=== PATIENT | male | born 1935 | race Caucasian/White ===

== ENCOUNTER → 2016-08-12 | Outpatient (CLI) | payer MEDICARE, OTHER ==
[2016-08-12 10:32] LABS: Basophils # (A) 0.1 k/uL (0-0.2); Basophils % (A) 1 %; CH 33.2; CHCM 33.4; Eosinophils # (A) 0.2 k/uL (0-0.7); Eosinophils % (A) 4 %; HCT 51.4 % (39.0-53.0); HDW 2.31; HGB 16.8 gm/dL (13.0-17.5); Luc # (Auto) 0.16; Luc % (Auto) 3; Lymphocytes % (A) 16 %; MCH 32.6 pg (25.0-35.0); MCHC 32.6 g/dL (31.0-37.0); MCV 99.9 fL (80.0-100.0); Mean Platelet Volume 7.2; Monocytes # (A) 0.3 k/uL (0-1.0); Monocytes % (A) 5 %; Neutrophils # (A) 4.3 k/uL (1.3-7.7); Neutrophils % (A) 71 %; RBC 5.15 m/uL (4.30-5.90); RDW 13.4 % (11.5-15.5); WBC (Perox) 6.04
[2016-08-12 12:03] LABS: Hemoglobin A1C 6.3 % (4.2-6.1)
[2016-08-12 12:10] LABS: ALT 41 U/L (21-72); AST 26 U/L (17-59); Alkaline Phosphatase 65 U/L (38-126); Anion Gap 13 mmol/L; Blood Urea Nitrogen 16 mg/dL (9-20); Calcium 9.3 mg/dL (8.4-10.2); Carbon Dioxide 26 mmol/L (22-30); Chloride 105 mmol/L (98-107); Cholesterol 172 mg/dL (<200); Glucose 119 mg/dL (74-99); HDL Cholesterol 48 mg/dL (40-60); Non-African American GFR(MDRD) >60 (>60 ml/min/1.73 sqM); Potassium 4.3 mmol/L (3.5-5.1); Sodium 144 mmol/L (137-145); Total Bilirubin 0.7 mg/dL (0.2-1.3); Total Protein 6.5 g/dL (6.3-8.2); Triglycerides 100 mg/dL (<150)
== END | disposition home or self-care (01) ==
LOC: LABWHC1 08:51
PROVIDERS: ATTEND Internal Medicine Critical Care Medicine
DX: E55.9 Vitamin D deficiency, unspecified (principal); E78.5 Hyperlipidemia, unspecified; Z12.5 Encounter for screening for malignant neoplasm of prostate; Z79.899 Other long term (current) drug therapy
CPT/HCPCS: 84439; 80061; 80053; 83036; 84443; 85025; 82306; 36415; G0103

== ENCOUNTER → 2018-03-08 | Outpatient (CLI) | payer MEDICARE, OTHER ==
[2018-03-08 11:12] LABS: Basophils # (A) 0.1 k/uL (0-0.2); Basophils % (A) 1 %; Eosinophils # (A) 0.2 k/uL (0-0.7); Eosinophils % (A) 4 %; HCT 52.2 % (39.0-53.0); HGB 16.6 gm/dL (13.0-17.5); Lymphocytes % (A) 16 %; MCH 31.3 pg (25.0-35.0); MCHC 31.8 g/dL (31.0-37.0); MCV 98.5 fL (80.0-100.0); Mean Platelet Volume 6.9; Monocytes # (A) 0.3 k/uL (0-1.0); Monocytes % (A) 4 %; Neutrophils # (A) 4.6 k/uL (1.3-7.7); Neutrophils % (A) 73 %; Platelet Count 203 k/uL (150-450); RDW 13.4 % (11.5-15.5); WBC 6.3 k/uL (3.8-10.6)
[2018-03-08 16:16] LABS: Albumin 4.2 g/dL (3.80-4.90); Albumin/Globulin Ratio 2.47 (1.20-2.10); Anion Gap 6.9 mmol/L (4.00-12.00); Calcium 9.2 mg/dL (8.7-10.3); Carbon Dioxide 29.1 mmol/L (21.6-31.8); Globulin 1.7 g/dL (2.1-3.7); Potassium 4.3 mmol/L (3.5-5.5); Total Bilirubin 0.9 mg/dL (0.2-1.2); Total Protein 5.9 g/dL (6.2-8.2)
== END | disposition home or self-care (01) ==
LOC: LABWHC1 10:09
PROVIDERS: ATTEND Internal Medicine Critical Care Medicine
DX: K57.92 Diverticulitis of intestine, part unspecified, without perforation or abscess without bleeding (principal); R97.20 Elevated prostate specific antigen [PSA]; M19.90 Unspecified osteoarthritis, unspecified site; E78.5 Hyperlipidemia, unspecified; I10 Essential (primary) hypertension; E55.9 Vitamin D deficiency, unspecified; Z12.5 Encounter for screening for malignant neoplasm of prostate
CPT/HCPCS: 84439; 80061; 80053; 84443; 85025; 82306; 83036; 36415; G0103

== ENCOUNTER 2018-10-14 21:09 | Emergency (ER) | payer MEDICARE, OTHER ==
[2018-10-14 21:18] VITALS: TEMP 97.5
--- NOTE | 2018-10-14 22:36 | ED ---
Male Urogenital HPI - General Chief complaint: Urogenital Stated complaint: Abd Pain Time Seen by Provider: 10/14/18 21:26 Source: patient, RN notes reviewed, old records reviewed Mode of arrival: wheelchair Limitations: no limitations - History of Present Illness Initial comments: This is an 83 male to the ED complains of severe abdominal pain and inability to urinate. Patient has recent history of knee surgery. Patient has been unable to urinate, has had bleeding and blood clots. Patient has severe abdominal pain with history or urinary retention. MD Complaint: dysuria (urinary retention and severe abdominal pain) -: hour(s) Location: abdomen Severity: severe Severity scale (1-10): 10 Quality: sharp Consistency: constant Improves with: none Worsens with: none Reports: urinary retention - Related Data Home Medications Medication Instructions Recorded Confirmed Atenolol [Tenormin] 5 mg PO DAILY 07/20/13 07/20/13 Atorvastatin Calcium [Lipitor] 5 mg PO DAILY 07/20/13 07/20/13 Cholecalciferol [Vitamin D3 (25 1,000 units PO DAILY 07/20/13 07/20/13 Mcg = 1000 Iu)] Moexipril/Hydrochlorothiazide 25 mg PO DAILY 07/20/13 07/20/13 [Uniretic 15-12.5 Tablet] Multivitamin/Iron/Folic Acid 1 tab PO DAILY 07/20/13 07/20/13 [Centrum Complete Multivit Tab] Previous Rx's Medication Instructions Recorded HYDROcodone/APAP 5-325MG [Almira 5] 1 each PO Q6HR PRN #20 tab 07/23/13 Levofloxacin [Levaquin] 500 mg PO DAILY #7 tab 07/23/13 metroNIDAZOLE [Flagyl] 500 mg PO TID #21 tab 07/23/13 Allergies Allergy/AdvReac Type Severity Reaction Status Date / Time Penicillins Allergy Intermediate Rash/Hives Verified 07/20/13 16:12 Review of Systems ROS Statement: Those systems with pertinent positive or pertinent negative responses have been documented in the HPI. ROS Other: All systems not noted in ROS Statement are negative. Past Medical History Past Medical History: GERD/Reflux, GI Bleed, Hyperlipidemia, Hypertension, Osteoarthritis (OA), Prostate Disorder Additional Past Medical History / Comment(s): gi bleed, diverticulosis History of Any Multi-Drug Resistant Organisms: None Reported Past Surgical History: Adenoidectomy, Back Surgery, Prostate Surgery, Tonsillectomy Additional Past Surgical History / Comment(s): r knee replacement, turps, BACK SX-CLIPS IN PLACE,FRANCIS KNEE REPLACEMENTS, TURP Past Psychological History: No Psychological Hx Reported Smoking Status: Former smoker Past Alcohol Use History: Daily Past Drug Use History: None Reported General Exam - General Exam Comments Initial Comments: severe abdominal pain Limitations: no limitations General appearance: alert, in no apparent distress Head exam: Present: atraumatic, normocephalic, normal inspection Eye exam: Present: normal appearance, PERRL, EOMI. Absent: scleral icterus, conjunctival injection, periorbital swelling ENT exam: Present: normal exam, mucous membranes moist Neck exam: Present: normal inspection. Absent: tenderness, meningismus, lymphadenopathy Respiratory exam: Present: normal lung sounds bilaterally. Absent: respiratory distress, wheezes, rales, rhonchi, stridor Cardiovascular Exam: Present: regular rate, normal rhythm, normal heart sounds. Absent: systolic murmur, diastolic murmur, rubs, gallop, clicks GI/Abdominal exam: Present: soft, normal bowel sounds. Absent: distended, tenderness, guarding, rebound, rigid Extremities exam: Present: normal inspection, full ROM, normal capillary refill. Absent: tenderness, pedal edema, joint swelling, calf tenderness Back exam: Present: normal inspection Neurological exam: Present: alert, oriented X3, CN II-XII intact Psychiatric exam: Present: normal affect, normal mood Skin exam: Present: warm, dry, intact, normal color. Absent: rash Course Vital Signs 10/14/18 21:14 Temperature 97.5 F L Pulse Rate 81 Respiratory 20 Rate Blood Pressure 156/67 O2 Sat by Pulse 95 Oximetry - Reevaluation(s) Reevaluation #1: 10/14/18 22:32 medical record is reviewed Reevaluation #2: 10/14/18 22:32 patient has complete relief after folet placement Reevaluation #3: 10/14/18 22:35 had 1100 cc bloody urine in thomas Disposition Clinical Impression: Urinary retention Disposition: HOME SELF-CARE Condition: Good Instructions (If sedation given, give patient instructions): Urinary Retention in Men (ED), Thomas Catheter Placement and Care (ED) Is patient prescribed a controlled substance at d/c from ED?: No Referrals: Clifton Veronica DO [Primary Care Provider] - 1-2 days
[2018-10-14 22:47] VITALS: BP 168/88; PULSE 73; RESP 16
== END 2018-10-14 22:48 | disposition home or self-care (01) ==
LOC: EC 21:09
DX: R33.9 Retention of urine, unspecified (principal); R10.9 Unspecified abdominal pain; R30.0 Dysuria; E78.5 Hyperlipidemia, unspecified; I10 Essential (primary) hypertension; N42.9 Disorder of prostate, unspecified; M19.90 Unspecified osteoarthritis, unspecified site; Z87.891 Personal history of nicotine dependence; Z79.899 Other long term (current) drug therapy; Z88.0 Allergy status to penicillin; Z96.653 Presence of artificial knee joint, bilateral
CPT/HCPCS: 51702; 87086; 99284

== ENCOUNTER → 2018-12-13 | Outpatient (CLI) | payer MEDICARE, OTHER ==
--- NOTE | 2018-12-14 10:44 | ECHOF ---
Referral Reason:R01.1 Heart Murmur MEASUREMENTS -------- HEIGHT: 182.9 cm WEIGHT: 90.3 kg BP: IVSd: 1.2 cm (0.6 - 1.1) LVIDd: 4.7 cm (3.9 - 5.3) LVPWd: 1.3 cm (0.6 - 1.1) IVSs: 1.6 cm LVIDs: 3.5 cm LVPWs: 1.3 cm LA Diam: 4.0 cm (2.7 - 3.8) LAESV Index (A-L): 13.45 ml/m Ao Diam: 2.8 cm (2.0 - 3.7) AV Cusp: 0.9 cm (1.5 - 2.6) LA Diam: 3.4 cm (2.7 - 3.8) MV EXCURSION: 18.048 mm (> 18.000) MV EF SLOPE: 55 mm/s (70 - 150) EPSS: 1.2 cm MV E Harris: 0.96 m/s MV DecT: 262 ms MV A Harris: 0.99 m/s MV E/A Ratio: 0.97 AV maxP.90 mmHg AV meanP.11 mmHg RAP: 5.00 mmHg RVSP: 34.97 mmHg TAPSE: 2.46 cm FINDINGS -------- Sinus rhythm. This was a technically adequate study. The left ventricular size is normal. There is mild concentric left ventricular hypertrophy. Overa ll left ventricular systolic function is normal with, an EF between 55 - 60 %. The diastolic fillin g pattern is normal for the age of the patient 13.70. The right ventricle is normal in size. Normal LA size by volume 22+/-6 ml/m2. The right atrial size is normal. There is mild aortic stenosis present. Peak/mean gradient across the Aortic Valve is 27.90mmHg / 12 .11mmHg. Mild mitral annular calcification present. Mild mitral regurgitation is present. Mild tricuspid regurgitation present. There is mild pulmonary hypertension. The right ventricular systolic pressure, as measured by Doppler, is 34.97mmHg. Trace/mild (physiologic) pulmonic regurgitation. There is no pericardial effusion. CONCLUSIONS -------- 1. Sinus rhythm. 2. This was a technically adequate study. 3. The left ventricular size is normal. 4. There is mild concentric left ventricular hypertrophy. 5. Overall left ventricular systolic function is normal with, an EF between 55 - 60 %. 6. The diastolic filling pattern is normal for the age of the patient 13.70 7. Normal LA size by volume 22+/-6 ml/m2. 8. There is mild aortic stenosis present. 9. Peak/mean gradient across the Aortic Valve is 27.90mmHg / 12.11mmHg. 10. Mild mitral annular calcification present. 11. Mild mitral regurgitation is present. 12. Mild tricuspid regurgitation present. 13. There is mild pulmonary hypertension. 14. Trace/mild (physiologic) pulmonic regurgitation. 15. There is no pericardial effusion. SHIP PAINTER HELPER: Gema Nice RDCS
== END ==
LOC: RADECHMAIN 15:14
PROVIDERS: ATTEND Internal Medicine Critical Care Medicine
DX: I08.8 Other rheumatic multiple valve diseases (principal); I27.20 Pulmonary hypertension, unspecified
CPT/HCPCS: 93306

== ENCOUNTER → 2019-03-31 | Outpatient (CLI) | payer MEDICARE, OTHER ==
[2019-03-31 17:26] LABS: Basophils # (A) 0.1 k/uL (0-0.2); Basophils % (A) 1 %; Eosinophils # (A) 0.2 k/uL (0-0.7); Eosinophils % (A) 3 %; HCT 47.7 % (39.0-53.0); HGB 15.5 gm/dL (13.0-17.5); Lymphocytes # (A) 1.3 k/uL (1.0-4.8); Lymphocytes % (A) 22 %; MCH 30.7 pg (25.0-35.0); MCHC 32.5 g/dL (31.0-37.0); MCV 94.6 fL (80.0-100.0); Mean Platelet Volume 7.7; Monocytes # (A) 0.3 k/uL (0-1.0); Monocytes % (A) 6 %; Neutrophils # (A) 3.6 k/uL (1.3-7.7); Neutrophils % (A) 65 %; Platelet Count 204 k/uL (150-450); RBC 5.05 m/uL (4.30-5.90); RDW 15.1 % (11.5-15.5); WBC 5.6 k/uL (3.8-10.6)
[2019-03-31 17:31] LABS: Appearance,Urine Clear (Clear); Bilirubin,Urine Negative (Negative); Blood,Urine Negative (Negative); Color,Urine Yellow; Glucose,Urine (UA) Negative (Negative); Ketones,Urine Negative (Negative); Leukocyte Esterase,Urine Negative (Negative); Nitrite,Urine Negative (Negative); PH, Urine 5.5 (5.0-8.0); Protein,Urine Negative (Negative); Specific Gravity,Urine 1.024 (1.001-1.035); Urobilinogen,Urine <2.0 mg/dL (<2.0)
[2019-03-31 17:44] LABS: African American GFR (CKD) >90 (>60 ml/min/1.73 sqM); Anion Gap 7 mmol/L; Blood Urea Nitrogen 19 mg/dL (9-20); Calcium 9.4 mg/dL (8.4-10.2); Carbon Dioxide 30 mmol/L (22-30); Chloride 104 mmol/L (98-107); Glucose 82 mg/dL (74-99); Non-African American GFR(CKD) 86 (>60 ml/min/1.73 sqM); Sodium 141 mmol/L (137-145)
== END | disposition home or self-care (01) ==
LOC: LABPAT 16:42
PROVIDERS: ATTEND Urology
DX: Z01.818 Encounter for other preprocedural examination (principal); Z01.812 Encounter for preprocedural laboratory examination; Z79.899 Other long term (current) drug therapy; R35.0 Frequency of micturition; N40.1 Benign prostatic hyperplasia with lower urinary tract symptoms; N13.8 Other obstructive and reflux uropathy; I10 Essential (primary) hypertension
CPT/HCPCS: 80048; 81003; 85025; 87086; 93005

== ENCOUNTER 2019-04-05 07:59 | Day surgery (SDC) | payer MEDICARE, OTHER ==
[2019-03-31 14:52] VITALS: BMI 25.0
--- NOTE | 2019-04-04 21:31 | P.GSHP ---
History of Present Illness H&P Date: 04/04/19 84 yo male with both obstructive and irritative urinary symptoms who has failed both alpha emory and anticholinergic. He had a cysto with temporary improvement in his symptoms We discussed turp. We discussed the alternative surgeries. We discussed the risks and complications including persistence of symptoms, incontinence andbleeding He comes for a bipolar turp - Constitutional Constitutional: Denies chills, Denies fever - EENT Eyes: denies blurred vision, denies pain Ears, nose, mouth and throat: Denies headache, Denies sore throat - Cardiovascular Cardiovascular: Denies chest pain, Denies shortness of breath - Respiratory Respiratory: Denies cough, Denies 7 - Gastrointestinal Gastrointestinal: Denies abdominal pain, Denies diarrhea, Denies nausea, Denies vomiting - Genitourinary (Female) Genitourinary: Denies dysuria, Denies hematuria - Genitourinary (Male) Genitourinary: Denies dysuria, Denies hematuria - Musculoskeletal Musculoskeletal: Denies myalgias - Integumentary Integumentary: Denies pruritus, Denies rash - Neurological Neurological: Denies numbness, Denies weakness - Psychiatric Psychiatric: Denies anxiety, Denies depression - Endocrine Endocrine: Denies fatigue, Denies weight change Past Medical History Past Medical History: GERD/Reflux, GI Bleed, Hypertension, Osteoarthritis (OA), Prostate Disorder Additional Past Medical History / Comment(s): diverticulitis, constipation, overactive bladder, frequent urination, History of Any Multi-Drug Resistant Organisms: None Reported Past Surgical History: Adenoidectomy, Back Surgery, Joint Replacement, Prostate Surgery, Tonsillectomy Additional Past Surgical History / Comment(s): theo knee replacement (rt x 2), TURP, laminectomy to remove a tumor, theo cataracts Past Anesthesia/Blood Transfusion Reactions: Motion Sickness Smoking Status: Former smoker - Past Family History Mother Family Medical History: No Reported History Medications and Allergies Home Medications Medication Instructions Recorded Confirmed Type Atenolol [Tenormin] 12.5 mg PO DAILY 07/20/13 03/31/19 History Atorvastatin Calcium [Lipitor] 5 mg PO HS 07/20/13 03/31/19 History Lisinopril-Hctz 10-12.5 mg 1 tab PO DAILY 10/14/18 03/31/19 History [Zestoretic 10-12.5] Aspirin [Adult Low Dose Aspirin EC] 81 mg PO DAILY 03/31/19 03/31/19 History Psyllium Husk Cap 2 cap PO BID 03/31/19 03/31/19 History Stool Softner 2 tab PO BID 03/31/19 03/31/19 History Vitamin E + D 1 tab PO DAILY 03/31/19 03/31/19 History Allergies Allergy/AdvReac Type Severity Reaction Status Date / Time Penicillins Allergy Intermediate Rash/Hives, Verified 03/31/19 14:39 joint swelling bicillin Allergy Rash/Hives, Uncoded 03/31/19 14:39 swelling of joints Surgical - Exam - General well nourished - Eyes PERRL - ENT no hearing loss - Neck no masses - Respiratory normal expansion, normal respiratory effort - Cardiovascular Rhythm: regular - Genitourinary enlarged prostate. normal penis with no external lesions, testicles present - Integumentary no rash, no growths - Musculoskeletal normal gait, normal posture - Psychiatric oriented to time, oriented to person, oriented to place, speech is normal, memory intact Assessment and Plan Assessment: Impression: Bph with obstruction Plan: Bipolar turp
[~2019-04-05 07:59] MED LIST: GENTAMICIN 120 MG in SODIUM CHLORIDE 0.9% 100 ML IVPB ONE; HYDROmorphone 0.5 MG/0.5 ML SYRINGE IVP PRN; LACTATED RINGERS 1,000 ML IV SCH; LIDOCAINE 1% 20 ML VIAL (10MG/ML) FOR IV START INTRADERMA PRN; ONDANSETRON 4 MG/2 ML VIAL IVP ONE
[2019-04-05] MEDS ORDERED: LEVOFLOXACIN 500MG-D5W PMX 500 MG in DEXTROSE/WATER 1 100ML.BAG IVPB STA (09:03)
[2019-04-05] MEDS ORDERED: ePHEDrine SULFATE/0.9% NACL/PF 50 MG/5 ML SYRINGE IV ONE (09:39)
[2019-04-05] MEDS ORDERED: GLYCOPYRROLATE 0.2 MG/ML 2 ML VIAL ONE (09:39)
[2019-04-05] MEDS ORDERED: fentaNYL (PF) 50 MCG/ML 2 ML AMP ONE (09:39)
[2019-04-05] MEDS ORDERED: PROPOFOL 10 MG/ML 20 ML VIAL IV ONE (09:39)
[2019-04-05] MEDS ORDERED: LIDOCAINE 1% INJ 10MG/ML (20 ML MDV) ONE (09:39)
[2019-04-05] MEDS ORDERED: MIDAZOLAM 2 MG/2 ML VIAL ONE (09:39)
[2019-04-05] MEDS ORDERED: SUCCINYLCHOLINE CHLORIDE 100 MG/5 ML SYR IV ONE (09:39)
--- NOTE | 2019-04-05 10:48 | P.OP ---
Date of Procedure: 04/05/19 Preoperative Diagnosis: BPH with obstruction, bladder neck contracture Postoperative Diagnosis: Same Procedure(s) Performed: Cystoscopy, incision of bladder neck contracture, TURP Anesthesia: CHAMP Surgeon: Johnny Watters Estimated Blood Loss (ml): 50 Pathology: other (process) Condition: stable Disposition: PACU Indications for Procedure: The patient is 84. Many years ago underwent a TURP. He has had increasing obstruction and frequency. 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 He comes for incision a vesicle neck contracture and TURP Description of Procedure: The patient is brought to the operating suite. He is given a general endotracheal anesthesia. He's placed lithotomy position with sterile prep and drape. The urethra is dilated to 30-Slovak with Rich sounds. I first attempted pass under direct vision the 25-Slovak sheath with direct vision obturator but due to contracture of the bladder neck and apical prosthetic tissue I removed the scope and I pass a 17-Slovak cystoscope with Foroblique lens and the bladder to dilate these contractures. I then am able to pass a 25- Slovak sheath and direct vision obturator into the bladder. With the Valenzuela resectoscope and bipolar loop I first resect the contracted bladder neck. I moved to the left lateral lobe resected tissue from 12:00 to 6:00. I do the same on the right lateral lobe. I then resect the redundant floor tissue. Apically there is some contracture that is included in the resection. At the end of the procedure the bladder Open there is no contracture. I freed the bladder prostatic chips. I controll ed bleeding with electrocautery. I removed the resectoscope and cred the bladder with a good strong stream. An 18-Slovak 5 mL balloon coud-tip catheters introduced the bladder with clear urine return. Blood loss is 50 mL. The patient awake and returned recovery in good condition. Discharged home upon recovery and found the office Wednesday for catheter removal. End dictation
[2019-04-05 11:03] VITALS: TEMP 96.8
[2019-04-05 11:46] VITALS: RESP 16
[2019-04-05 11:57] VITALS: BP 146/79
[2019-04-05 12:20] VITALS: PULSE 88
== END 2019-04-05 13:00 | disposition home or self-care (01) ==
LOC: OR 07:59
PROVIDERS: ATTEND Urology
DX: C61 Malignant neoplasm of prostate (principal); N41.0 Acute prostatitis; N40.1 Benign prostatic hyperplasia with lower urinary tract symptoms; N13.8 Other obstructive and reflux uropathy; N32.0 Bladder-neck obstruction; N32.81 Overactive bladder; I10 Essential (primary) hypertension; M19.90 Unspecified osteoarthritis, unspecified site; E78.5 Hyperlipidemia, unspecified; Z88.0 Allergy status to penicillin; Z88.1 Allergy status to other antibiotic agents; Z79.82 Long term (current) use of aspirin; Z79.899 Other long term (current) drug therapy; Z90.89 Acquired absence of other organs; Z96.653 Presence of artificial knee joint, bilateral; Z98.41 Cataract extraction status, right eye; Z98.42 Cataract extraction status, left eye; Z87.891 Personal history of nicotine dependence; Z87.19 Personal history of other diseases of the digestive system
CPT/HCPCS: 88344; 88305; 52601; J2250; J2405; J1956; J2001; J3010; J1580; J0330; J2704

== ENCOUNTER → 2020-02-14 | Outpatient (CLI) | payer MEDICARE, OTHER ==
[2020-02-14 10:18] LABS: Basophils # (A) 0.1 k/uL (0-0.2); Basophils % (A) 1 %; Eosinophils # (A) 0.3 k/uL (0-0.7); Eosinophils % (A) 4 %; HCT 49.9 % (39.0-53.0); Lymphocytes # (A) 1.2 k/uL (1.0-4.8); Lymphocytes % (A) 18 %; MCH 31.4 pg (25.0-35.0); MCV 98.1 fL (80.0-100.0); Mean Platelet Volume 7.7; Monocytes # (A) 0.4 k/uL (0-1.0); Monocytes % (A) 6 %; Neutrophils # (A) 4.4 k/uL (1.3-7.7); Neutrophils % (A) 69 %; Platelet Count 181 k/uL (150-450); RBC 5.08 m/uL (4.30-5.90); RDW 13.6 % (11.5-15.5); WBC 6.4 k/uL (3.8-10.6)
[2020-02-14 15:31] LABS: African American GFR (CKD) 89.9 (60.0-200.0); Albumin 4.1 g/dL (3.80-4.90); Albumin/Globulin Ratio 1.86 (1.60-3.17); Anion Gap 6.3 mmol/L (4.00-12.00); BUN/Creat Ratio 16.67 Ratio (12.00-20.00); Calcium 9.5 mg/dL (8.7-10.3); Carbon Dioxide 29.7 mmol/L (21.6-31.8); Globulin 2.2 g/dL (1.6-3.3); Non-African American GFR(CKD) 77.6 (60.0-200.0); Potassium 4.3 mmol/L (3.5-5.5); Total Bilirubin 0.9 mg/dL (0.2-1.2); Total Protein 6.3 g/dL (6.2-8.2)
[2020-02-14 15:39] LABS: PSA Annual Screen 6.1 ng/mL (0.0-4.0)
[2020-02-14 19:26] LABS: Hemoglobin A1C 5.8 % (4.0-6.0)
== END | disposition home or self-care (01) ==
LOC: LABWHC1 09:11
PROVIDERS: ATTEND Internal Medicine Critical Care Medicine
DX: E78.5 Hyperlipidemia, unspecified (principal); I10 Essential (primary) hypertension; R97.20 Elevated prostate specific antigen [PSA]; N40.1 Benign prostatic hyperplasia with lower urinary tract symptoms; E55.9 Vitamin D deficiency, unspecified
CPT/HCPCS: 84439; 84481; 80053; 85025; 82306; 83036; 36415; G0103

== ENCOUNTER → 2020-02-29 | Outpatient (CLI) | payer MEDICARE, OTHER ==
[2020-02-29 16:49] LABS: Chol/HDL Ratio 3.11; LDL Cholesterol,Calculated 95.4 mg/dL (0.0-131.0); VLDL Calculation 16.6 mg/dL (5.00-40.00)
== END | disposition home or self-care (01) ==
LOC: LABWHC1 09:05
PROVIDERS: ATTEND Internal Medicine Critical Care Medicine
DX: E78.5 Hyperlipidemia, unspecified (principal)
CPT/HCPCS: 36415; 80061

== ENCOUNTER → 2020-08-06 | Outpatient (CLI) | payer MEDICARE, OTHER ==
--- NOTE | 2020-08-07 07:25 | ECHOF ---
Referral Reason:I35.0 Aortic stenosis MEASUREMENTS -------- HEIGHT: 185.4 cm WEIGHT: 90.7 kg BP: RVIDd: 4.1 cm (< 3.3) IVSd: 1.7 cm (0.6 - 1.1) LVIDd: 3.7 cm (3.9 - 5.3) LVPWd: 1.5 cm (0.6 - 1.1) IVSs: 1.8 cm LVIDs: 2.4 cm LVPWs: 2.0 cm LAESV Index (A-L): 41.61 ml/m Ao Diam: 3.4 cm (2.0 - 3.7) AV Cusp: 1.1 cm (1.5 - 2.6) LA Diam: 4.7 cm (2.7 - 3.8) MV EXCURSION: 14.703 mm (> 18.000) MV EF SLOPE: 120 mm/s (70 - 150) EPSS: 0.9 cm MV E Harris: 1.28 m/s MV DecT: 262 ms MV A Harris: 0.88 m/s MV E/A Ratio: 1.45 AV maxP.08 mmHg AV meanP.55 mmHg RAP: 5.00 mmHg RVSP: 40.30 mmHg FINDINGS -------- Sinus rhythm. This was a technically adequate study. The left ventricular size is normal. There is moderate concentric left ventricular hypertrophy. O verall left ventricular systolic function is normal with, an EF between 55 - 60 %. Increased Lap Gr mary jo II Diastolic Dysfunction. The right ventricle is moderately enlarged. LA is moderately dilated 34-39 ml/m2 The right atrium is mildly enlarged. Interatrial and interventricular septum intact. There is no evidence of aortic regurgitation. There is moderate aortic stenosis present. Peak/milvia n gradient across the Aortic Valve is 37.08mmHg / 20.55mmHg. Moderate mitral annular calcification present. Ijml-wk-krliezzw mitral regurgitation is present. Urim-pc-qyndgawd tricuspid regurgitation present. There is mild to moderate pulmonary hypertension. The right ventricular systolic pressure, as measured by Doppler, is 40.30mmHg. Trace/mild (physiologic) pulmonic regurgitation. The aortic root size is normal. IVC Not well visulized. There is no pericardial effusion. CONCLUSIONS -------- 1. The left ventricular size is normal. 2. There is moderate concentric left ventricular hypertrophy. 3. Overall left ventricular systolic function is normal with, an EF between 55 - 60 %. 4. Increased Lap Grade II Diastolic Dysfunction. 5. The right ventricle is moderately enlarged. 6. LA is moderately dilated 34-39 ml/m2 7. The right atrium is mildly enlarged. 8. There is moderate aortic stenosis present. 9. Peak/mean gradient across the Aortic Valve is 37.08mmHg / 20.55mmHg. 10. Moderate mitral annular calcification present. 11. Ldcg-wu-xncqjfdh mitral regurgitation is present. 12. Rupy-un-mkilwvbw tricuspid regurgitation present. 13. There is mild to moderate pulmonary hypertension. 14. The right ventricular systolic pressure, as measured by Doppler, is 40.30mmHg. 15. Trace/mild (physiologic) pulmonic regurgitation. OWNER ORAL SURGEON: Mindi Capps RDCS
== END | disposition home or self-care (01) ==
LOC: RADECHMAIN 13:57
PROVIDERS: ATTEND Internal Medicine Critical Care Medicine
DX: I08.8 Other rheumatic multiple valve diseases (principal); I27.20 Pulmonary hypertension, unspecified; I37.1 Nonrheumatic pulmonary valve insufficiency
CPT/HCPCS: 93306

== ENCOUNTER 2021-04-09 15:50 | Emergency (ER) | payer MEDICARE, OTHER ==
[2021-04-09 16:32] VITALS: BP 149/70; PULSE 79; RESP 20; TEMP 102
[2021-04-09] MEDS ORDERED: ACETAMINOPHEN TAB 500 MG TAB PO STA (16:37)
--- NOTE | 2021-04-09 16:57 | XR ---
EXAMINATION TYPE: XR chest 2V DATE OF EXAM: 04/09/2021 COMPARISON: 07/20/2013 HISTORY: Cough. TECHNIQUE: 2 views FINDINGS: Heart and mediastinum are normal. Lungs are clear. Diaphragm is normal. Bony thorax appears normal. IMPRESSION: Normal chest. No change.
[2021-04-09] MEDS ORDERED: BAMLANIVIMAB (EUA) 700 MG, ETESEVIMAB (EUA) 1,400 MG in SODIUM CHLORIDE 0.9% 100 ML IVPB ONE (18:00)
[2021-04-09] MEDS ORDERED: SODIUM CHLORIDE 0.9% 50 ML IVPB ONE (18:00)
--- NOTE | 2021-04-09 18:10 | ED ---
General Adult HPI - General Chief complaint: Shortness of Breath Stated complaint: Covid+/BAM Source: patient Mode of arrival: ambulatory Limitations: no limitations - History of Present Illness Initial comments: 86-year-old male presents emergency Department stating that he is Covid positive. He began having symptoms 3 days ago. He is vaccinated with a booster that happened in December. He went through [facility] yesterday to get a outpatient Covid test. He was found to be positive. States that he has had some shortness of breath at home. His home care nurse checked his pulse ox and they thought it was 73 that further recommended that he come to the emergency room for evaluation. He denies any chest pain. Continues to eat and drink without difficulty. Admits to some mild diarrhea and increased frequency of urination. No other alleviating, precipitating factors - Related Data Home Medications Medication Instructions Recorded Confirmed Atorvastatin Calcium [Lipitor] 10 mg PO HS 07/20/13 04/09/21 atenoloL [Tenormin] 12.5 mg PO DAILY 07/20/13 04/09/21 Lisinopril-Hctz 10-12.5 mg 1 tab PO DAILY 10/14/18 04/09/21 [Zestoretic 10-12.5] Aspirin [Adult Low Dose Aspirin EC] 81 mg PO DAILY 03/31/19 04/09/21 Allergies Allergy/AdvReac Type Severity Reaction Status Date / Time Penicillins Allergy Intermediate Rash/Hives, Verified 04/09/21 16:32 joint swelling bicillin Allergy Rash/Hives, Uncoded 04/09/21 16:32 swelling of joints Review of Systems ROS Statement: Those systems with pertinent positive or pertinent negative responses have been documented in the HPI. ROS Other: All systems not noted in ROS Statement are negative. Past Medical History Past Medical History: GERD/Reflux, GI Bleed, Hypertension, Osteoarthritis (OA), Prostate Disorder Additional Past Medical History / Comment(s): diverticulitis, constipation, overactive bladder, frequent urination, History of Any Multi-Drug Resistant Organisms: None Reported Past Surgical History: Adenoidectomy, Back Surgery, Joint Replacement, Prostate Surgery, Tonsillectomy Additional Past Surgical History / Comment(s): theo knee replacement (rt x 2), TURP, laminectomy to remove a tumor, theo cataracts Past Anesthesia/Blood Transfusion Reactions: Motion Sickness Past Psychological History: No Psychological Hx Reported Smoking Status: Never smoker Past Alcohol Use History: Daily Past Drug Use History: None Reported - Past Family History Mother Family Medical History: No Reported History General Exam Limitations: no limitations Course Vital Signs 04/09/21 04/09/21 16:29 17:27 Temperature 102.0 F H Pulse Rate 79 Respiratory 20 Rate Blood Pressure 149/70 O2 Sat by Pulse 94 L 94 L Oximetry Medical Decision Making - Medical Decision Making Upon arrival patient was placed into room 15. Oxygen saturation is 94%. Patient is able to get up and ambulate around the emergency department does not demonstrate any signs of hypoxia or respiratory distress. Given Tylenol for his fever. Chest x-rays performed with no signs of open pneumonia. Patient given antibody infusion. He'll be discharged home and instructed follow-up with his primary care doctor in 2-4 days. Check his pulse ox at home and return for any oxygenation less than 90%. He agreed to the treatment plan and was discharged home in stable condition Disposition Clinical Impression: COVID-19 Disposition: HOME SELF-CARE Condition: Stable Instructions (If sedation given, give patient instructions): Coronavirus Disease 2019 (COVID-19) Additional Instructions: You received antibody infusion today. Please alternate taking Motrin and Tylenol every 4 hours as needed for fever and muscle aches. Return to the emergency room for any new or worsening symptoms Is patient prescribed a controlled substance at d/c from ED?: No Referrals: Clifton Veronica DO [Primary Care Provider] - 1-2 days Time of Disposition: 18:10
== END 2021-04-09 19:30 | disposition home or self-care (01) ==
LOC: EC 15:50
DX: U07.1 COVID-19 (principal); I10 Essential (primary) hypertension; K21.9 Gastro-esophageal reflux disease without esophagitis; Z79.82 Long term (current) use of aspirin; Z79.899 Other long term (current) drug therapy
CPT/HCPCS: 71046; 99284; J3490

== ENCOUNTER 2021-07-31 13:22 | Inpatient (IN) | payer MEDICARE, OTHER ==
--- NOTE | 2021-07-31 14:20 | ED ---
General Adult HPI - General Chief complaint: Neuro Symptoms/Deficit Stated complaint: Neuro Symptoms Time Seen by Provider: 07/31/21 13:51 Source: patient, family Mode of arrival: ambulatory Limitations: no limitations - History of Present Illness Initial comments: Dictation was produced using [employer] dictation software. please excuse any grammatical, word or spelling errors. Chief Complaint:86-year-old male instructed by neurologist come to the emergency department for evaluation. History of Present Illness: Is an 86-year-old male presents to the emergency Department with word finding difficulties. He had 2 episodes one yesterday and one today. Patient was recently admitted to the hospital for cerebrovascular accident. He was admitted to the hospital for 4-5 days. After the 2 such incidences yesterday and today they contacted the neurologist who consulted on the patient while he was admitted states that he should come to the emergency room to be seen. Patient denies any such word finding difficulties at the bedside. Denies any other symptoms. He was admitted for stroke recently. He had slurred speech since last admission. Patient has other complaints at this time. The ROS documented in this emergency department record has been reviewed and confirmed by me. Those systems with pertinent positive or negative responses have been documented in the HPI. All other systems are other negative and/or noncontributory. PHYSICAL EXAM: General Impression: Alert and oriented x3, not in acute distress HEENT: Normocephalic atraumatic, extra-ocular movements intact, pupils equal and reactive to light bilaterally, mucous membranes moist. Cardiovascular: Heart regular rate and rhythm Chest: Able to complete full sentences, no retractions, no tachypnea Abdomen: abdomen soft, non-tender, non-distended, no organomegaly Musculoskeletal: Pulses present and equal in all extremities, no peripheral edema Motor: no focal deficits noted Neurological: CN II-XII grossly intact, no focal motor or sensory deficits no johanna, slurred speech Skin: Intact with no visualized rashes Psych: Normal affect and mood ED course: 86-year-old male recently admitted to the hospital for cerebrovascular accident presents to the emergency department for 2 episodes of word finding difficulties as upon arrival are within acceptable limits. Patient does not have any physical exam findings to suggest word finding difficulties at this time. He does have noticeable slurred speech but he is not aphasic and not dysarthric. Limited evaluation obtained. CBC, coag panel, metabolic panel is unremarkable. Glucose is 71. Patient given oral intake. Computed tomography scan of the brain shows acute versus subacute new area of low attenuation in the left parietal lobe. Patient reevaluated at bedside at 4:00 PM. Spoke with neurologist who is familiar with patient and recommends inpatient admission. He does request a cardiology consult it. Patient given dose of aspirin. Is not dated for alteplase given that he isn't an a coag machine therapy, he does not have any new ongoing neurologic symptoms. Patient be admitted to [facility]. EKG shows no acute findings were compared to most previous EKG. - Related Data Home Medications Medication Instructions Recorded Confirmed Lisinopril-Hctz 10-12.5 mg 1 tab PO DAILY 10/14/18 07/31/21 [Zestoretic 10-12.5] Aspirin [Adult Low Dose Aspirin EC] 81 mg PO DAILY 03/31/19 07/31/21 Nitroglycerin Sl Tabs [Nitrostat] 0.4 mg SUBLINGUAL Q5M PRN 07/31/21 07/31/21 Previous Rx's Medication Instructions Recorded Apixaban [Eliquis] 5 mg PO BID #60 tab 07/15/21 Atorvastatin [Lipitor] 80 mg PO HS 30 Days #30 tab 07/17/21 Metoprolol Tartrate [Lopressor] 50 mg PO BID 30 Days #60 tab 07/17/21 Allergies Allergy/AdvReac Type Severity Reaction Status Date / Time Penicillins Allergy Intermediate Rash/Hives, Verified 07/31/21 14:49 Joint swelling bicillin Allergy Rash/Hives, Uncoded 07/31/21 13:29 swelling of joints Review of Systems ROS Statement: Those systems with pertinent positive or pertinent negative responses have been documented in the HPI. ROS Other: All systems not noted in ROS Statement are negative. Past Medical History Past Medical History: GERD/Reflux, GI Bleed, Hypertension, Osteoarthritis (OA), Prostate Disorder Additional Past Medical History / Comment(s): diverticulitis, constipation, overactive bladder, frequent urination, History of Any Multi-Drug Resistant Organisms: None Reported Past Surgical History: Adenoidectomy, Back Surgery, Joint Replacement, Prostate Surgery, Tonsillectomy Additional Past Surgical History / Comment(s): theo knee replacement (rt x 2), TURP, laminectomy to remove a tumor, theo cataracts Past Anesthesia/Blood Transfusion Reactions: Motion Sickness Past Psychological History: No Psychological Hx Reported Smoking Status: Never smoker Past Alcohol Use History: Daily Past Drug Use History: None Reported - Past Family History Mother Family Medical History: No Reported History General Exam Limitations: no limitations Course Vital Signs 07/31/21 13:24 Temperature 97.9 F Pulse Rate 94 Respiratory 18 Rate Blood Pressure 130/60 O2 Sat by Pulse 96 Oximetry Medical Decision Making - Lab Data Result diagrams: 07/31/21 14:59 07/31/21 14:59 Lab Results 07/31/21 07/31/21 07/31/21 Range/Units 14:59 14:59 14:59 WBC 6.4 (3.8-10.6) k/uL RBC 5.17 (4.30-5.90) m/uL Hgb 16.3 (13.0-17.5) gm/dL Hct 50.2 (39.0-53.0) % MCV 97.2 (80.0-100.0) fL MCH 31.5 (25.0-35.0) pg MCHC 32.4 (31.0-37.0) g/dL RDW 13.3 (11.5-15.5) % Plt Count 216 (150-450) k/uL MPV 7.8 Neutrophils % 78 % Lymphocytes % 14 % Monocytes % 5 % Eosinophils % 2 % Basophils % 1 % Neutrophils # 5.0 (1.3-7.7) k/uL Lymphocytes # 0.9 L (1.0-4.8) k/uL Monocytes # 0.3 (0-1.0) k/uL Eosinophils # 0.1 (0-0.7) k/uL Basophils # 0.0 (0-0.2) k/uL PT 11.5 (9.0-12.0) sec INR 1.1 (<1.2) APTT 26.1 (22.0-30.0) sec Sodium 139 (137-145) mmol/L Potassium 3.9 (3.5-5.1) mmol/L Chloride 101 (98-107) mmol/L Carbon Dioxide 28 (22-30) mmol/L Anion Gap 10 mmol/L BUN 18 (9-20) mg/dL Creatinine 0.90 (0.66-1.25) mg/dL Est GFR (CKD-EPI)AfAm 88 (>60 ml/min/1.73 sqM) Est GFR (CKD-EPI)NonAf 77 (>60 ml/min/1.73 sqM) Glucose 71 L (74-99) mg/dL Calcium 9.4 (8.4-10.2) mg/dL Disposition Clinical Impression: CVA (cerebral vascular accident) Disposition: ADMITTED IP TO THIS HOSP Condition: Serious Referrals: Clifton Veronica DO [Primary Care Provider] - 1-2 days
[2021-07-31 15:06] LABS: Basophils % (A) 1 %; Eosinophils # (A) 0.1 k/uL (0-0.7); Eosinophils % (A) 2 %; HCT 50.2 % (39.0-53.0); HGB 16.3 gm/dL (13.0-17.5); Lymphocytes # (A) 0.9 k/uL (1.0-4.8); Lymphocytes % (A) 14 %; MCH 31.5 pg (25.0-35.0); MCHC 32.4 g/dL (31.0-37.0); MCV 97.2 fL (80.0-100.0); Mean Platelet Volume 7.8; Monocytes # (A) 0.3 k/uL (0-1.0); Monocytes % (A) 5 %; Neutrophils % (A) 78 %; Platelet Count 216 k/uL (150-450); RBC 5.17 m/uL (4.30-5.90); RDW 13.3 % (11.5-15.5); WBC 6.4 k/uL (3.8-10.6)
[2021-07-31 15:20] LABS: Calcium 9.4 mg/dL (8.4-10.2); Potassium 3.9 mmol/L (3.5-5.1)
[2021-07-31 15:22] LABS: INR 1.1 (<1.2); Partial Thromboplastin Time 26.1 sec (22.0-30.0); Prothrombin Time 11.5 sec (9.0-12.0)
--- NOTE | 2021-07-31 15:37 | CT ---
EXAMINATION TYPE: CT brain wo con DATE OF EXAM: 07/31/2021 COMPARISON: 07/12/2021 HISTORY: Slurred speech. CT DLP: 1159.4 mGycm Automated exposure control for dose reduction was used. FINDINGS: Moderate generalized degenerative change. Low-attenuation the white matter is nonspecific. Most typic al of remote ischemia. There is a new area of low attenuation left frontal white matter could represe nt recent ischemia. No evidence of acute hemorrhage or mass effect. No midline shift. Low attenuation in the external capsule bilaterally suggestive of remote ischemia. Craniocervical larry ction appears maintained in the sella turcica has a normal appearance. Calvarium is intact. Nasal sep melony deviation noted. IMPRESSION: 1. New area of low attenuation in the left parietal lobe correlate for acute ischemia. 2. No evidence of acute hemorrhage. 3. Degenerative and nonspecific white matter changes most typical of remote ischemia.
[2021-07-31] MEDS ORDERED: ASPIRIN 81 MG PO STA (16:00)
[2021-07-31] MEDS ORDERED: ASPIRIN 325 MG TAB PO STA (16:11)
[2021-07-31] MEDS: SODIUM CHLORIDE 0.9% 1,000 ML IV SCH (17:02)
--- NOTE | 2021-07-31 18:12 | P.HPIM ---
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 Patient returned to the emergency department today as instructed by his neurologist for evaluation of difficulties with speech beginning yesterday evening around 7 PM. Patient reports since discharge home from hospital on 07/17/21 he has had 2 significant episodes in which he had significant difficulties with his speech, once yesterday and again today. Patient and his son at bedside reports this started yesterday evening around 7 PM just before sitting down to eat dinner, he reported patient had some palpitations and the Biological alerted them that patient was back into RVR with heart rate of 110 and a few moments later patient developed word finding difficulties accompanied by mild slurred speech. Minor episodes continue with 2 major episodes reported in which patient had significant slurred speech and word finding difficulties. Patient continues to have noted word finding difficulties and slurring of his speech upon physical examination. He remains in atrial fibrillation with a controlled ventricular rate in the 70s at this time. Patient denies experien cing any other neurological deficits or complaints including headache, lightheadedness, dizziness, chest pain, palpitations, shortness of breath, or experiencing any focal numbness/weakness/tingling in his extremities. In the emergency department, patient underwent full evaluation. A CT brain was completed revealing a new area of low attenuation in the left parietal lobe correlating for acute ischemia with no evidence of acute hemorrhage. CBC, BMP, and coags unremarkable. Patient was admitted under our services with consultation to neurology, cardiology, and vascular surgery. Review of systems: Pertinent positives and negatives as discussed in HPI, a complete review of systems was performed and all other systems are negative. Physical exam: Vital signs reviewed and stable. General: Nontoxic, no distress and appears stated age. Derm: Skin warm and dry, normal coloration for ethnicity. Head: Atraumatic, normocephalic and symmetric. Eyes: EOMs intact, no lid lag, and anicteric sclera Mouth: no lip lesions, mucus membranes moist Cardiovascular: Irregularly irregular with normal S1S2, systolic murmur, positive posterior tibial pulses bilaterally, and cap refill < 2 seconds. Lungs: Respirations even, regular, and unlabored on room air. Lungs CTA bilaterally, no rhonchi, no rales, no wheezing, and no accessory muscle usage. Abdominal: soft, nontender to palpation, no guarding, no appreciable organomegaly Ext: ROM intact. No gross muscle atrophy, no edema, no contractures Neuro: Mild dysarthria with slurred speech and word finding difficulties noted throughout assessment, face symmetrical and CN II-XII grossly intact with no noted focal neuro deficits Psych: Alert and oriented to person, place, time, and situation. 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 -Continue NIH stroke assessment as well as neuro checks every 4 hours. -Neurology consulted, recommending holding off anti-coagulant pending MRI results and requested stat MRI of brain without contrast. Appreciate further recommendations. (Spoke with MRI tach at 5:58 PM, patient will have stat MRI completed this evening) -Cardiology consulted, appreciate further recommendations. -Vascular surgery consulted, appreciate further recommendations. -Continue atorvastatin 80 mg nightly and aspirin daily. -Recent echocardiogram completed 07/14/21 revealed EF of 50-55% with moderate concentric left ventricular hypertrophy and mild to moderate aortic stenosis and mild mitral and pulmonic regurgitation, no pulmonary hypertension. -Continuous telemetry monitoring Hypertension -Allow for permissive hypertension over the next 24-48 hours secondary to acute ischemic CVA, we will continue with daily metoprolol 50 mg twice a day to prevent patient from going back into A. fib RVR and hold lisinopril/hydrochlorothiazide at this time. -Monitor vital signs. Hyperlipidemia -Continue daily medication regimen with atorvastatin 80 mg nightly. The patient is admitted with an anticipated greater than 2 midnight stay for evaluation of acute ischemic stroke of left parietal lobe CODE STATUS: Full code DVT prophylaxis: SCDs Discussed with: Patient and RN Anticipated discharge date: Clinical course to determine Anticipated discharge place: Home A total of 45 minutes was spent on the care of this complex patient more than 50% of the time was spent in counseling and care coordination. I reviewed the documentation as provided by the NABILA above, who is the original author of this note. I agree with the documented assessment and plan, with the following changes: none Past Medical History Past Medical History: GERD/Reflux, GI Bleed, Hypertension, Osteoarthritis (OA), Prostate Disorder Additional Past Medical History / Comment(s): diverticulitis, constipation, overactive bladder, frequent urination, History of Any Multi-Drug Resistant Organisms: None Reported Past Surgical History: Adenoidectomy, Back Surgery, Joint Replacement, Prostate Surgery, Tonsillectomy Additional Past Surgical History / Comment(s): theo knee replacement (rt x 2), TURP, laminectomy to remove a tumor, theo cataracts Past Anesthesia/Blood Transfusion Reactions: Motion Sickness Past Psychological History: No Psychological Hx Reported Smoking Status: Never smoker Past Alcohol Use History: Daily Past Drug Use History: None Reported - Past Family History Mother Family Medical History: No Reported History Medications and Allergies Home Medications Medication Instructions Recorded Confirmed Type Lisinopril-Hctz 10-12.5 mg 1 tab PO DAILY 10/14/18 07/31/21 History [Zestoretic 10-12.5] Aspirin [Adult Low Dose Aspirin EC] 81 mg PO DAILY 03/31/19 07/31/21 History Apixaban [Eliquis] 5 mg PO BID #60 tab 07/15/21 07/31/21 Rx Atorvastatin [Lipitor] 80 mg PO HS 30 Days #30 tab 07/17/21 07/31/21 Rx Metoprolol Tartrate [Lopressor] 50 mg PO BID 30 Days #60 tab 07/17/21 07/31/21 Rx Nitroglycerin Sl Tabs [Nitrostat] 0.4 mg SUBLINGUAL Q5M PRN 07/31/21 07/31/21 History Allergies Allergy/AdvReac Type Severity Reaction Status Date / Time Penicillins Allergy Intermediate Rash/Hives, Verified 07/31/21 14:49 Joint swelling penicillin G Allergy Rash/Hives, Verified 07/31/21 16:15 [From Bicillin L-A] swelling of joints Physical Exam Vitals: Vital Signs Temp Pulse Resp BP Pulse Ox 07/31/21 13:24 97.9 F 94 18 130/60 96 Intake and Output 07/31/21 07/31/21 07/31/21 06:59 14:59 22:59 Other: Weight 79.379 kg Results CBC & Chem 7: 07/31/21 14:59 07/31/21 14:59 Labs: Abnormal Lab Results - Last 24 Hours (Table) 07/31/21 07/31/21 Range/Units 14:59 14:59 Lymphocytes # 0.9 L (1.0-4.8) k/uL Glucose 71 L (74-99) mg/dL
--- NOTE | 2021-07-31 19:42 | MR ---
EXAMINATION TYPE: MR brain wo con DATE OF EXAM: 07/31/2021 6:42 PM COMPARISON: MR brain 07/14/2021. CLINICAL INDICATION:Male, 86 years old with history of Stroke, word finding difficulties; TECHNIQUE: Multi planar, multi sequence imaging was performed through the brain including: T1, T2, In version recovery, Diffusion weighted imaging, and gradient echo imaging. No gadolinium was given. FINDINGS: Redemonstration of multiple foci of restricted diffusion in the left cerebral hemisphere involving th e left frontal left parietal lobes. The largest has increased in size from prior measuring 18 mm, pre viously 10 mm. The ventricular system, and cisterns appear unremarkable. Patchy areas of high T2 sig nal intensity are seen within the deep white matter. Midline structures show no abnormality. Low atte nuation in the external capsule bilaterally suggestive of remote ischemia. Remote right basal ganglia lacunar injury suggested. The bone marrow signal is within normal limits. The paranasal sinuses demonstrate scattered mucosal t hickening. The lenses are not visualized in the globes. IMPRESSION: 1. Redemonstration of multiple left cerebral infarcts with a distribution suggestive of embolic pheno yahir. This may be minimally progressed from prior examination 07/14/2021 with the largest lesion on T ishan's exam in the left posterior frontal wright radiata and is minimally larger. 2. Nonspecific white matter changes, likely secondary to small vessel ischemic disease.
[2021-07-31] MEDS: ATORVASTATIN 80 MG TAB PO SCH (19:45)
[2021-07-31] MEDS ORDERED: PSYLLIUM HUSK 100% 6 GM PACKET PO STA (20:58)
--- NOTE | 2021-07-31 21:54 | P.PN ---
Progress Note - Text Progress Note Date: 07/31/21 Notified of the MRI results. Discussed the case with Dr Veronica, Neurologist optoelectronics engineer. Recommended that in light of the risk of conversion to hemorrhagic CVA, despite the embolic nature of the CVA, we should continue to hold Eliquis for 24 hours. Stated that he will reassess the patient in the morning for possible resumption of Eliquis.
[2021-08-01 05:32] LABS: Chol/HDL Ratio 2.54 Ratio; LDL Cholesterol,Calculated 36.9 mg/dL (0.0-131.0); VLDL Calculation 19.94 mg/dL (5.00-40.00)
--- NOTE | 2021-08-01 07:52 | US ---
EXAMINATION TYPE: US carotid duplex BILAT DATE OF EXAM: 08/01/2021 COMPARISON: US CLINICAL HISTORY: stroke. Abnormal speech, h/o stroke EXAM MEASUREMENTS: RIGHT: Peak Systolic Velocity (PSV) cm/sec ----- Right CCA: 49.6 ----- Right ICA: 100.8 ----- Right ECA: 100.0 ICA/CCA ratio: 2.0 RIGHT: End Diastole cm/sec ----- Right CCA: 10.4 ----- Right ICA: 27.4 ----- Right ECA: 11.1 LEFT: Peak Systolic Velocity (PSV) cm/sec ----- Left CCA: 36.1 ----- Left ICA: Occluded ----- Left ECA: 167.0 ICA/CCA ratio: -- LEFT: End Diastole cm/sec ----- Left CCA: 9.8 ----- Left ICA: Occluded ----- Left ECA: 25.3 VERTEBRALS (direction of flow): Right Vertebral: Antegrade Left Vertebral: Antegrade Rhythm: Arrhythmia Heterogeneous plaque bilaterally, left ICA occluded IMPRESSION: 1. Bilateral heterogeneous plaque with occlusion of left ICA. 2. Cardiac dysrhythmia. 3. Findings suggest a 50-69% stenosis of the right ICA. Criteria for Assigning % of Stenosis / Diameter reduction (Estimation based on the indirect measurements of the internal carotid artery velocities (ICA PSV). 1. Normal (no stenosis)=ICA PSV < 125 cm/s: ratio < 2.0: ICA EDV<40 cm/s. 2. Less than 50% stenosis=ICA PSV < 125 cm/s: ratio < 2.0: ICA EDV<40 cm/s. 3. 50 to 69% stenosis=ICA PSV of 125 to 230 cm/s: ration 2.0 ? 4.0: ICA EDV 40-100 cm/s. 4. Greater than 70% stenosis to near occlusion= ICA PSV > 230 cm/s: ratio > 4.0: ICA EDV > 100 cm/s. 5. Near occlusion= ICA PSV velocities may be low or undetectable: variable ratio and ICA EDV. 6. Total occlusion=unable to detect flow.
[2021-08-01] MEDS ORDERED: CLOPIDOGREL 75 MG TAB PO STA (08:04)
[2021-08-01] MEDS ORDERED: ASPIRIN 81 MG PO SCH (09:00)
[2021-08-01] MEDS: LISINOPRIL-HCTZ 10-12.5 MG 1 EACH TAB PO SCH (09:51)
[2021-08-01] MEDS: METOPROLOL TARTRATE 50 MG TAB PO SCH ×2 (09:51→19:45)
[2021-08-01] MEDS: APIXABAN 5 MG TAB PO SCH ×2 (09:51→19:45)
--- NOTE | 2021-08-01 09:54 | P.CNNES ---
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 Patient is known to me and I personally saw the patient in our facility in the end of June 2021 and he had the stroke over the left hemisphere and he had multifocal stroke he did not receive IV TPA since he was outside the window and the etiology of the stroke seems embolic due to new onset atrial fibrillation and left ICA occlusion. Patient was started on Eliquis 5 mg a tablet twice a day then was continued on his home dose of ASA 81mg daily. The international exchange coordinator contacted me and notified me that the patient the family felt the patient is having word finding difficulty and confusion and I notified the [employer] to contact the family and let them know like to bring the patient in the hospital which they did. Per family members patient has not missed his home medication of eliquis or ASA. He felt better after therapy but next day he noticed worsening of slurred speech and word finding difficulty.. Of note please refer to my prior notes for further details. Some of the workup in the hospital consisted off Lipid panel is triglyceride of 99, cholesterol 94, LDLs 36 and HDL is 36. CT of the head is reported as new area of low attenuation in the left parietal lobe correlate for acute ischemia. No evidence of for acute hemorrhage. Degenerative and nonspecific white matter changes most typical of remote ischemia. I personally reviewed the CT of the head and I felt the left parietal see more subacute. There is no intrathecal hemorrhage. MRI the brain is reported as redemonstration of multiple left cerebral infarct with distribution suggestive of embolic phenomena. This may be minimally progressed from the prior examination 07/14/2021 with the largest lesion today on today's exam in the left posterior parietal wright radiata and is minimally larger. Nonspecific white matter changes likely secondary to small vessel ischemic disease. I personally reviewed the MRI and that there is a few small lacunar stroke seen on the left hemisphere compared to to 07/14/2021 MRI Brain. Carotid duplex is reported Is reported as bilateral heterogenous plaque with occlusion of left ICA. Cardiac dysrthymia. Finding suggest a 50-69% stenosis of the right ICA. I personally spoke with the primary team yesterday over the phone and notified them to hold the anticoagulation to avoid hemorrhagic conversion. I asked him to escalate the MRI of the brain stat. Review of Systems Review of system: The 12 point system was reviewed and apparent positive and negative per HPI. Past Medical History Past Medical History: CVA/TIA, GERD/Reflux, GI Bleed, Hypertension, Osteoarthritis (OA), Prostate Disorder Additional Past Medical History / Comment(s): diverticulitis, constipation, overactive bladder, frequent urination, History of Any Multi-Drug Resistant Organisms: None Reported Past Surgical History: Adenoidectomy, Back Surgery, Joint Replacement, Prostate Surgery, Tonsillectomy Additional Past Surgical History / Comment(s): theo knee replacement (rt x 2), TURP, laminectomy to remove a tumor, theo cataracts Past Anesthesia/Blood Transfusion Reactions: Motion Sickness Past Psychological History: No Psychological Hx Reported Smoking Status: Never smoker Past Alcohol Use History: Daily Additional Past Alcohol Use History / Comment(s): quit smoking 1962, smoked for 5-6 yrs. one mixed drink daily Past Drug Use History: None Reported - Past Family History Mother Family Medical History: No Reported History Medications and Allergies Home Medications Medication Instructions Recorded Confirmed Type Lisinopril-Hctz 10-12.5 mg 1 tab PO DAILY 10/14/18 07/31/21 History [Zestoretic 10-12.5] Aspirin [Adult Low Dose Aspirin EC] 81 mg PO DAILY 03/31/19 07/31/21 History Apixaban [Eliquis] 5 mg PO BID #60 tab 07/15/21 07/31/21 Rx Atorvastatin [Lipitor] 80 mg PO HS 30 Days #30 tab 07/17/21 07/31/21 Rx Metoprolol Tartrate [Lopressor] 50 mg PO BID 30 Days #60 tab 07/17/21 07/31/21 Rx Nitroglycerin Sl Tabs [Nitrostat] 0.4 mg SUBLINGUAL Q5M PRN 07/31/21 07/31/21 History Allergies Allergy/AdvReac Type Severity Reaction Status Date / Time Penicillins Allergy Intermediate Rash/Hives, Verified 07/31/21 14:49 Joint swelling penicillin G Allergy Rash/Hives, Verified 07/31/21 16:15 [From Bicillin L-A] swelling of joints Physical Examination - Vital Signs Vital Signs: Vital Signs Temp Pulse Pulse Resp BP BP Pulse Ox 08/01/21 04:00 58 L 17 141/86 96 07/31/21 22:58 68 18 134/89 94 L 07/31/21 19:45 97.3 F L 81 18 153/81 95 07/31/21 18:20 98.1 F 83 18 134/87 96 07/31/21 13:24 97.9 F 94 18 130/60 96 Intake and Output 07/31/21 08/01/21 08/01/21 22:59 06:59 14:59 Other: Voiding Method Toilet Toilet Diaper Diaper # Voids 4 Weight 79.379 kg GENERAL: The patient is lying in bed and does not appear in acute distress. Is asleep. NEUROLOGICAL: Deferred since patient is asleep. Was asked by patient's son to come back later. I came back again and patient was sitting on recliner chair: NEUROLOGICAL: Higher mental function: The patient is awake, alert, oriented to self, place and time. Patient is following commands. No aphasia and no neglect. Good repetition. Cranial nerves: The pupils are round, equal and reactive to light and accommodation. Visual main are full to confrontation throughout. Extraocular movement is intact no nystagmus is noted. Facial sensation is normal to touch throughout. The facial strength is mild right nasolabial flattening. Hearing is moderately to severely decreased bilaterally to hand rub. Tongue is midline and moved [id number] without any difficulty. Moderate dysarthria is noted. Shoulder shrug is normal bilaterally. Motor: Gait is deferred. The strength is right foot drop (old). Otherwise 5 over 5 throughout. Normal tone and bulk. Cerebellum: Normal finger to nose bilaterally. Sensation: Sensation is normal to touch throughout. Results - Laboratory Findings CBC and BMP: 07/31/21 14:59 07/31/21 14:59 Abnormal Lab Findings: Abnormal Labs 07/31/21 07/31/21 07/31/21 14:59 14:59 14:59 Lymphocytes # 0.9 L Glucose 71 L HDL Cholesterol 36.80 L Assessment and Plan Assessment: Acute ischemic stroke over the left hemispher seems embolic (atrial fibrillation and not sure if having any plaque dislodging from left ICA occlusion). Prese nted with word finding difficulty (expressive aphasia) and stated had worsening of dyarthria. Recent stroke with multi-infarct on left hemispheric towards end of 06/2021 Dysarthria due to above Atrial fibrillation Left ICA occlusion Right ICA stenosis Hypertension History of lumbar puncture over the L4-L5 with right foot drop in 1974 status post resection Plan: I loaded the patient with Plavix 300 mg once and start the patient on Plavix 75 mg daily. Currently the patient is on aspirin 81 mg daily. Recommend to restart the patient's Eliquis 5 mg 1 tablet twice a day and stop aspirin. There is a risk of hemorrhagic conversion which cannot be excluded with starting anticoagulation but the benefits outweigh the risk and this was discussed the patient and the patient's son. Recommend stopping ASA from neurological perspective. Continue Lipitor 80 mg daily at bedtime Ordered limited 2-D echo with bubble study. Continue neuro checks On cardiac monitoring Vascular surgery team is consulted Cardiology team is consulted PT OT and SALES REPRESENTATIVE SALES MANAGER are consulted We'll defer the rest of the medical management to the primary team For DVT prophylxis: On Eliquis. The plan is discussed with the patient's son who is at bedside and vascular surgery team. Thank you for the consultation. UPDATE: I later spoke with the patient's daughter who was at bedside and she requested patient transferred to [facility] for escalation of care. Primary team was notified and attempted to contact [facility] but was told there are no beds available. Dr. Benjamin is covering neurology service tomorrow AM then Dr. Blue starts Wednesday. Jimenez Veronica M.D. Neuro-hospitalist Time with Patient: Greater than 30
--- NOTE | 2021-08-01 12:46 | P.CRDCN ---
History of Present Illness History of present illness: HISTORY OF PRESENTING ILLNESS This is a pleasant 86-year-old male past medical history significant for CVA 06/2021, hypertension, dyslipidemia, persistent atrial fibrillation on Eliquis, carotid stenosis. He follows in the office with Dr. Montemayor. We have been asked to see in consultation for atrial fibrillation. Patient presents to the emergency department with complaints of difficulty with speech. Patient had difficulty word finding and confusion at home, [facility] He denies any chest pain, shortness of breath. Yesterday evening at dinner patient had some palpitations, Biological alerted them that patient was in atrial fibrillation with HR 110, and a few moments later patient developed word finding difficulties accompanied by mild slurred speech. Second episode of this in 2 days. DIAGNOSTICS EKG reveals atrial fibrillation, heart rate [address] revealed new area of low attenuation of the left parietal lobe correlate first 2 ischemia. No evidence of acute hemorrhage. Brain MRI Redemonstrated multiple left cerebral infarct with distribution suggestive of embolic phenomenon. May be minimally progressive prior examination on 07/14/2021 with the largest lesion on today's exam the left posterior frontal wright radiata. Telemetry tracings indicate atrial fibrillation with controlled ventricular rates Current home medications include Eliquis 5 mg twice a day, aspirin 80 mg daily, atorvastatin 80 mg nightly, lisinoprilhydrochlorothiazide 1012 0.5 mg daily, metoprolol tartrate 50 mg twice a day Echocardiogram 07/14/2021 revealed EF of 5055 percent, mild to moderate aortic stenosis with a mean gradient of 20 mmHg Carotid Doppler revealed bilateral plaque with occlusion of the left ICA, 5069 percent stenosis of the right ICA Lexiscan stress test 07/11/2021 was negative for reversible ischemia REVIEW OF SYSTEMS At the time of my exam: CONSTITUTIONAL: Denies fever or chills. CARDIOVASCULAR: Denies chest pain, shortness of breath, orthopnea, PND or palpitations. RESPIRATORY: Denies cough. GASTROINTESTINAL: Denies abdominal pain, diarrhea, constipation, nausea or vomiting. MUSCULOSKELETAL: Denies myalgias. NEUROLOGIC: Denies numbness, tingling, headacbe or weakness. ENDOCRINE: Denies fatigue, weight change, polydipsia or polyurina. GENITOURINARY: Denies burning, hematuria or urgency with micturation. HEMATOLOGIC: Denies history of anemia or bleeding. PHYSICAL EXAMINATION Blood pressure 144/87, heart rate 76, afebrile, saturation 96% on room air CONSTITUTIONAL: No apparent distress. HEENT: Head is normocephalic. Pupils are equal, round. Sclerae anicteric. Mucous membranes of the mouth are moist. No JVD. No carotid bruit. CHEST EXAMINATION: Lungs are clear to auscultation. No chest wall tenderness is noted on palpation or with deep breathing. HEART EXAMINATION: Regular rate and rhythm. S1, S2 heard. No murmurs, gallops or rub. ABDOMEN: Soft, nontender. Positive bowel sounds. EXTREMITIES: 2+ peripheral pulses, no lower extremity edema and no calf tenderness. NEUROLOGIC EXAMINATION: Patient is awake, alert and oriented x3. ASSESSMENT Acute ischemic stroke Expressive Aphasia Recent CVA 06/2021 Persistent atrial fibrillation on Eliquis Carotid stenosis, occluded left ICA, 50-69% stenosis seen in right ICA PLAN From a cardiology perspective, recommend restarting Eliquis Restart patient's home antihypertensives Plavix started per Neuro Continue statin Neurology following Dr. Graf does not recommend AMBER at this time. Further recommendations based on clinical course Nurse practitioner note has been reviewed by physician. Signing provider agrees with the documented findings, assessment, and plan of care. Past Medical History Past Medical History: CVA/TIA, GERD/Reflux, GI Bleed, Hypertension, Osteoarthritis (OA), Prostate Disorder Additional Past Medical History / Comment(s): diverticulitis, constipation, overactive bladder, frequent urination, History of Any Multi-Drug Resistant Organisms: None Reported Past Surgical History: Adenoidectomy, Back Surgery, Joint Replacement, Prostate Surgery, Tonsillectomy Additional Past Surgical History / Comment(s): theo knee replacement (rt x 2), TURP, laminectomy to remove a tumor, theo cataracts Past Anesthesia/Blood Transfusion Reactions: Motion Sickness Past Psychological History: No Psychological Hx Reported Smoking Status: Never smoker Past Alcohol Use History: Daily Additional Past Alcohol Use History / Comment(s): quit smoking 1962, smoked for 5-6 yrs. one mixed drink daily Past Drug Use History: None Reported - Past Family History Mother Family Medical History: No Reported History Medications and Allergies Home Medications Medication Instructions Recorded Confirmed Type Lisinopril-Hctz 10-12.5 mg 1 tab PO DAILY 10/14/18 07/31/21 History [Zestoretic 10-12.5] Aspirin [Adult Low Dose Aspirin EC] 81 mg PO DAILY 03/31/19 07/31/21 History Apixaban [Eliquis] 5 mg PO BID #60 tab 07/15/21 07/31/21 Rx Atorvastatin [Lipitor] 80 mg PO HS 30 Days #30 tab 07/17/21 07/31/21 Rx Metoprolol Tartrate [Lopressor] 50 mg PO BID 30 Days #60 tab 07/17/21 07/31/21 Rx Nitroglycerin Sl Tabs [Nitrostat] 0.4 mg SUBLINGUAL Q5M PRN 07/31/21 07/31/21 History Allergies Allergy/AdvReac Type Severity Reaction Status Date / Time Penicillins Allergy Intermediate Rash/Hives, Verified 07/31/21 14:49 Joint swelling penicillin G Allergy Rash/Hives, Verified 07/31/21 16:15 [From Bicillin L-A] swelling of joints Physical Exam Vitals: Vital Signs Temp Pulse Pulse Resp BP BP Pulse Ox 08/01/21 11:51 97.8 F 76 16 144/87 95 08/01/21 09:56 98.5 F 78 16 176/86 96 08/01/21 04:00 58 L 17 141/86 96 07/31/21 22:58 68 18 134/89 94 L 07/31/21 19:45 97.3 F L 81 18 153/81 95 07/31/21 18:20 98.1 F 83 18 134/87 96 07/31/21 13:24 97.9 F 94 18 130/60 96 Intake and Output 07/31/21 08/01/21 08/01/21 22:59 06:59 14:59 Other: Voiding Method Toilet Toilet Diaper Diaper # Voids 4 Weight 79.379 kg Results 07/31/21 14:59 07/31/21 14:59 Coagulation 07/31/21 Range/Units 14:59 PT 11.5 (9.0-12.0) sec APTT 26.1 (22.0-30.0) sec Lipids 07/31/21 Range/Units 14:59 Triglycerides 99.70 (0.00-149.00) mg/dL Cholesterol 94.00 (0.00-200.00) mg/dL HDL Cholesterol 36.80 L (40.00-60.00) mg/dL Cholesterol/HDL Ratio 2.54 Ratio CBC 07/31/21 Range/Units 14:59 WBC 6.4 (3.8-10.6) k/uL RBC 5.17 (4.30-5.90) m/uL Hgb 16.3 (13.0-17.5) gm/dL Hct 50.2 (39.0-53.0) % Plt Count 216 (150-450) k/uL Comprehensive Metabolic Panel 07/31/21 Range/Units 14:59 Sodium 139 (137-145) mmol/L Potassium 3.9 (3.5-5.1) mmol/L Chloride 101 (98-107) mmol/L Carbon Dioxide 28 (22-30) mmol/L BUN 18 (9-20) mg/dL Creatinine 0.90 (0.66-1.25) mg/dL Glucose 71 L (74-99) mg/dL Calcium 9.4 (8.4-10.2) mg/dL Current Medications Generic Name Dose Route Start Last Admin Trade Name Freq PRN Reason Stop Dose Admin Apixaban 5 mg 08/01/21 09:45 08/01/21 09:51 Apixaban 5 Mg Tab PO 5 mg BID ANDRZEJ Administration Protocol Atorvastatin Calcium 80 mg 07/31/21 21:00 07/31/21 19:45 Atorvastatin 80 Mg Tab PO 80 mg HS ANDRZEJ Administration Clopidogrel Bisulfate 75 mg 08/02/21 09:00 Clopidogrel 75 Mg Tab PO DAILY ANDRZEJ Lisinopril/HCTZ 1 each 08/01/21 09:45 08/01/21 09:51 Lisinopril-Hctz 10-12.5 Mg 1 Each Tab PO 1 each DAILY ANDRZEJ Administration Sodium Chloride 1,000 mls @ 20 mls/hr 07/31/21 16:15 07/31/21 17:02 Saline 0.9% IV 20 mls/hr .Q24H ANDRZEJ Administration Metoprolol Tartrate 50 mg 08/01/21 09:45 08/01/21 09:51 Metoprolol Tartrate 50 Mg Tab PO 50 mg BID ANDRZEJ Administration Intake and Output 07/31/21 08/01/21 08/01/21 22:59 06:59 14:59 Other: Voiding Method Toilet Toilet Diaper Diaper # Voids 4 Weight 79.379 kg 07/31/21 14:59 07/31/21 14:59
--- NOTE | 2021-08-01 12:55 | P.GSCN ---
History of Present Illness Consult date: 08/01/21 Reason for Consult: Carotid stenosis, Recurrent CVA Requesting physician: Jimenez Veronica History of present illness: This is a an 86-year-old gentleman who presented to the emergency department yesterday directed by his neurologist for evaluation of difficulties with speech that began Wednesday around 7 PM. 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 During his last admission he underwent a CT angiogram of the head and neck reporting occlusion of the left internal carotid artery at its origin. There is filling of the left anterior and middle cerebral artery apparently through the anterior communicating artery. Approximate 40% stenosis at the origin of the right internal carotid artery. Also during that admission he had a carotid duplex done that reported right ICA demonstrating between 50 and 69% stenosis at the carotid bifurcation. He remains in atrial fibrillation with controlled ventricular rate. He currently still having difficulty with his speech. Denies any upper or lower extremity weakness. No difficulty with swallowing. No visual losses. During his last admission he was put on Eliquis and states that he has been taking it as ordered daily. He denies any chest pain, shortness of breath, abdominal pain, nausea or vomiting. Brain CAT scan showing new area of low attenuation in the left parietal lobe correlate for acute ischemia. No evidence of acute hemorrhage. Degenerative nonspecific white matter changes most typical of remote ischemia. MRI of the brain redemonstration of multiple left cerebral infarcts with a distribution suggestive of embolic phenomenon. This may be minimally progressed from prior examination 07/14/2021 with the largest lesion on today's exam in the left posterior frontal wright Hossein Hussain and is minimally larger. Nonspecific white matter changes likely secondary to small vessel ischemic disease. Review of Systems A 14 point review systems was completed all pertinent positives and negatives as stated in the HPI. Past Medical History Past Medical History: CVA/TIA, GERD/Reflux, GI Bleed, Hypertension, Osteoarthritis (OA), Prostate Disorder Additional Past Medical History / Comment(s): diverticulitis, constipation, overactive bladder, frequent urination, History of Any Multi-Drug Resistant Organisms: None Reported Past Surgical History: Adenoidectomy, Back Surgery, Joint Replacement, Prostate Surgery, Tonsillectomy Additional Past Surgical History / Comment(s): theo knee replacement (rt x 2), TURP, laminectomy to remove a tumor, theo cataracts Past Anesthesia/Blood Transfusion Reactions: Motion Sickness Past Psychological History: No Psychological Hx Reported Smoking Status: Never smoker Past Alcohol Use History: Daily Additional Past Alcohol Use History / Comment(s): quit smoking 1962, smoked for 5-6 yrs. one mixed drink daily Past Drug Use History: None Reported - Past Family History Mother Family Medical History: No Reported History Medications and Allergies Home Medications Medication Instructions Recorded Confirmed Type Lisinopril-Hctz 10-12.5 mg 1 tab PO DAILY 10/14/18 07/31/21 History [Zestoretic 10-12.5] Aspirin [Adult Low Dose Aspirin EC] 81 mg PO DAILY 03/31/19 07/31/21 History Apixaban [Eliquis] 5 mg PO BID #60 tab 07/15/21 07/31/21 Rx Atorvastatin [Lipitor] 80 mg PO HS 30 Days #30 tab 07/17/21 07/31/21 Rx Metoprolol Tartrate [Lopressor] 50 mg PO BID 30 Days #60 tab 07/17/21 07/31/21 Rx Nitroglycerin Sl Tabs [Nitrostat] 0.4 mg SUBLINGUAL Q5M PRN 07/31/21 07/31/21 History Allergies Allergy/AdvReac Type Severity Reaction Status Date / Time Penicillins Allergy Intermediate Rash/Hives, Verified 07/31/21 14:49 Joint swelling penicillin G Allergy Rash/Hives, Verified 07/31/21 16:15 [From Bicillin L-A] swelling of joints Surgical - Exam Vital Signs Temp Pulse Resp BP Pulse Ox 97.9 F 94 18 130/60 96 07/31/21 13:24 07/31/21 13:24 07/31/21 13:24 07/31/21 13:24 07/31/21 13:24 General appearance: The patient is alert, oriented, appears in no acute distress. HET: Head is normocephalic and atraumatic. Pupils are equal and reactive. Neck: Supple without lymphadenopathy. Trachea midline. Bilateral carotid bruit. Heart: S1 S2. Irregular heart rate. Systolic murmur. Lungs: Clear to auscultation bilaterally. Abdomen: Soft, nontender, nondistended. Extremities: Normal skin color and turgor. No cyanosis, rash, ulceration, clubbing, or edema. Positive bilateral palpable femoral and popliteal pulses. Neurological: No focal deficits. Strength and sensation are grossly intact. Results - Labs 07/31/21 14:59 07/31/21 14:59 Abnormal Lab Results - Last 24 Hours (Table) 07/31/21 07/31/21 07/31/21 Range/Units 14:59 14:59 14:59 Lymphocytes # 0.9 L (1.0-4.8) k/uL Glucose 71 L (74-99) mg/dL HDL Cholesterol 36.80 L (40.00-60.00) mg/dL Diabetes panel 07/31/21 07/31/21 Range/Units 14:59 14:59 Sodium 139 (137-145) mmol/L Potassium 3.9 (3.5-5.1) mmol/L Chloride 101 (98-107) mmol/L Carbon Dioxide 28 (22-30) mmol/L BUN 18 (9-20) mg/dL Creatinine 0.90 (0.66-1.25) mg/dL Glucose 71 L (74-99) mg/dL Calcium 9.4 (8.4-10.2) mg/dL Triglycerides 99.70 (0.00-149.00) mg/dL HDL Cholesterol 36.80 L (40.00-60.00) mg/dL Calcium panel 07/31/21 Range/Units 14:59 Calcium 9.4 (8.4-10.2) mg/dL Pituitary panel 07/31/21 Range/Units 14:59 Sodium 139 (137-145) mmol/L Potassium 3.9 (3.5-5.1) mmol/L Chloride 101 (98-107) mmol/L Carbon Dioxide 28 (22-30) mmol/L BUN 18 (9-20) mg/dL Creatinine 0.90 (0.66-1.25) mg/dL Glucose 71 L (74-99) mg/dL Calcium 9.4 (8.4-10.2) mg/dL Adrenal panel 05/12/22 Range/Units 14:59 Sodium 139 (137-145) mmol/L Potassium 3.9 (3.5-5.1) mmol/L Chloride 101 (98-107) mmol/L Carbon Dioxide 28 (22-30) mmol/L BUN 18 (9-20) mg/dL Creatinine 0.90 (0.66-1.25) mg/dL Glucose 71 L (74-99) mg/dL Calcium 9.4 (8.4-10.2) mg/dL - Imaging Comments: Brain CAT scan showing new area of low attenuation in the left parietal lobe correlate for acute ischemia. No evidence of acute hemorrhage. Degenerative nonspecific white matter changes most typical of remote ischemia. MRI of the brain redemonstration of multiple left cerebral infarcts with a distribution suggestive of embolic phenomenon. This may be minimally progressed from prior examination 07/14/2021 with the largest lesion on today's exam in the left posterior frontal wright Hossein Hussain and is minimally larger. Nonspecific white matter changes likely secondary to small vessel ischemic disease. Carotid duplex right ICA PSV 100.8, ICA/CCA ratio 2.0 left ICA occluded. Bilateral heterogeneous plaque with occlusion of left ICA. Cardiac dysrhythmia, findings suggest 50-69% stenosis of right ICA Assessment and Plan Assessment: 1. Left internal carotid artery occlusion, less than 50% ICA stenosis right internal carotid artery per CTA 07/13/2021 2. Acute ischemic stroke over left hemisphere likely embolic, with symptoms of expressive aphasia and dysarthria 3. Atrial fibrillation 4. Recurrent CVA Plan: 1. Recommend continue Plavix and statin 2. Patient with left ICA occlusion, there is no indication for any vascular surgical intervention. Believe source is embolic likely related to atrial fibr illation. 3. Appreciate recommendations from neurology 4. Appreciate recommendations from cardiology 5. PT/OT consult 6. Speech therapy consult Thank you for this consultation. The impression and plan of care has been dictated as directed. Dr. Chairez I performed a history and examination of this patient, discussed the same with the dictator. I agree with the dictator's note ,documented as a scribe. Any additional findings or plans will be noted.
[2021-08-01] MEDS: PSYLLIUM HUSK 100% 6 GM PACKET PO SCH (18:05)
--- NOTE | 2021-08-01 18:09 | P.PN ---
Subjective Progress Note Date: 08/01/21 Principal diagnosis: slurred speech Patient still with slurred speech, no improvement. No focal weakness or numbness. No visual issues. Objective - Vital Signs Vital signs: Vital Signs Temp 98.2 F 08/01/21 16:00 Pulse 71 08/01/21 16:00 Resp 16 08/01/21 16:00 BP 114/68 08/01/21 16:00 Pulse Ox 95 08/01/21 16:00 Intake & Output 07/31/21 08/01/21 08/01/21 18:59 06:59 18:59 Intake Total 250 Balance 250 Weight 79.379 kg 79.379 kg Intake: Oral 250 Other: Voiding Method Toilet Diaper # Voids 4 3 - Exam Constitutional: No acute distress, conversant, pleasant Eyes:Anicteric sclerae, moist conjunctiva, no lid-lag, PERRLA, ENMT: Oropharynx clear, no erythema, exudates Neck: Supple, FROM, no masses, or JVD, No carotid bruits, No thyromegaly Lungs: Clear to auscultation, Clear to percussion, Normal respiratory effort, no accessory muscle use Cardiovascular: Heart regular in rate and rhythm, No murmurs, gallops, or rubs, No peripheral edema Abdominal: Soft, Nontender, no guarding, rebound or rigidity, Normoactive bowel sounds, No hepatomegaly, No splenomegaly, No palpable mass Skin: Normal temperature, tone, texture, turgor, no induration, No subcutaneous nodules, No rash, lesions, No ulcers Extremities: No digital cyanosis, No clubbing, Pedal pulses intact and symmetrical, Radial pulses intact and symmetrical, No calf tenderness Psychiatric: Alert and oriented to person, place and time, appropriate affect, intact judgement Neuro: speech is slurred Muscles Strength 5/5 in all 4 extremities, Sensation to light touch grossly present throughout, Cranial nerves II-XII grossly intact, no focal sensory deficits - Labs CBC & Chem 7: 07/31/21 14:59 07/31/21 14:59 Labs: Abnormal Lab Results - Last 24 Hours (Table) 07/31/21 Range/Units 14:59 HDL Cholesterol 36.80 L (40.00-60.00) mg/dL Assessment and Plan Plan: 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 -Continue NIH stroke assessment as well as neuro checks every 4 hours. -Neurology following, d/c aspirin continue eliquis and plavix -Continue atorvastatin 80 mg nightly -Cardiology consulted, appreciate recommendations. -Vascular surgery consulted, appreciate further recommendations--no surgical intervention indicated. -Recent echocardiogram completed 07/14/21 revealed EF of 50-55% with moderate concentric left ventricular hypertrophy and mild to moderate aortic stenosis and mild mitral and pulmonic regurgitation, no pulmonary hypertension. -Continuous telemetry monitoring Hypertension -Continue bp meds Hyperlipidemia -Continue daily medication regimen with atorvastatin 80 mg nightly. Patient's family requested transfer to [facility] today for second opinion. Patient will be transferred, call completed. Patient accepted by physician at [facility]. CODE STATUS: Full code DVT prophylaxis: SCDs Discussed with: Patient and RN Anticipated discharge date: Once bed available at [facility] Anticipated discharge place: [facility] A total of 45 minutes was spent on the care of this complex patient more than 50% of the time was spent in counseling and care coordination.
[2021-08-01] MEDS: ATORVASTATIN 80 MG TAB PO SCH (19:45)
[2021-08-02] MEDS: APIXABAN 5 MG TAB PO SCH ×2 (08:49→20:34)
[2021-08-02] MEDS: PSYLLIUM HUSK 100% 6 GM PACKET PO SCH ×2 (08:49→20:57)
[2021-08-02] MEDS: CLOPIDOGREL 75 MG TAB PO SCH (08:49)
[2021-08-02] MEDS: LISINOPRIL-HCTZ 10-12.5 MG 1 EACH TAB PO SCH (08:49)
[2021-08-02] MEDS: METOPROLOL TARTRATE 50 MG TAB PO SCH ×2 (08:49→20:34)
--- NOTE | 2021-08-02 11:52 | P.PN ---
Subjective Progress Note Date: 08/02/21 Principal diagnosis: slurred speech Still with slurred speech. No new focal deficits. No headaches. No cp or sob. Objective - Vital Signs Vital signs: Vital Signs Temp 98.3 F 08/02/21 08:45 Pulse 85 08/02/21 08:45 Resp 18 08/02/21 08:45 BP 166/87 08/02/21 08:45 Pulse Ox 97 08/02/21 08:45 Intake & Output 08/01/21 08/02/21 08/02/21 18:59 06:59 18:59 Intake Total 490 Balance 490 Intake: Oral 490 Other: Voiding Method Toilet Toilet Diaper Diaper # Voids 3 1 - Exam Constitutional: No acute distress, conversant, pleasant Eyes:Anicteric sclerae, moist conjunctiva, no lid-lag, PERRLA, ENMT: Oropharynx clear, no erythema, exudates Neck: Supple, FROM, no masses, or JVD, No carotid bruits, No thyromegaly Lungs: Clear to auscultation, Clear to percussion, Normal respiratory effort, no accessory muscle use Cardiovascular: Heart regular in rate and rhythm, No murmurs, gallops, or rubs, No peripheral edema Abdominal: Soft, Nontender, no guarding, rebound or rigidity, Normoactive bowel sounds, No hepatomegaly, No splenomegaly, No palpable mass Skin: Normal temperature, tone, texture, turgor, no induration, No subcutaneous nodules, No rash, lesions, No ulcers Extremities: No digital cyanosis, No clubbing, Pedal pulses intact and symmetrical, Radial pulses intact and symmetrical, No calf tenderness Psychiatric: Alert and oriented to person, place and time, appropriate affect, intact judgement Neuro: speech is slurred Muscles Strength 5/5 in all 4 extremities, Sensation to light touch grossly present throughout, Cranial nerves II-XII grossly intact, no focal sensory deficits - Labs CBC & Chem 7: 07/31/21 14:59 07/31/21 14:59 Assessment and Plan Plan: 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 -Continue NIH stroke assessment as well as neuro checks every 4 hours. -Neurology following, d/c aspirin continue eliquis and plavix -Continue atorvastatin 80 mg nightly -Cardiology consulted, appreciate recommendations. -Vascular surgery consulted, appreciate further recommendations--no surgical intervention indicated. -Recent echocardiogram completed 07/14/21 revealed EF of 50-55% with moderate concentric left ventricular hypertrophy and mild to moderate aortic stenosis and mild mitral and pulmonic regurgitation, no pulmonary hypertension. -Continuous telemetry monitoring Hypertension -Continue bp meds Hyperlipidemia -Continue daily medication regimen with atorvastatin 80 mg nightly. Patient's family requested transfer to [facility] today for second opinion. Patient will be transferred, call completed. Patient accepted by physician at [facility]. Awaiting bed to be available at the [facility] CODE STATUS: Full code DVT prophylaxis: SCDs Discussed with: Patient and RN Anticipated discharge date: Once bed available at [facility] Anticipated discharge place: [facility] A total of 45 minutes was spent on the care of this complex patient more than 50% of the time was spent in counseling and care coordination.
--- NOTE | 2021-08-02 15:46 | P.PN ---
Subjective Progress Note Date: 08/02/21 The patient is an 86-year-old male who is seen in neurologic follow-up on August 02, 2021, via teleneurology. The patient is reclining in the bed. His daughter is present at the bedside. The patient denies any worsening of his symptoms. He reports that he did have a 2-D echocardiogram this morning. He is reportedly awaiting transfer to the [facility]. There are no beds available currently. Chart is reviewed. Patient reportedly has a history of a recent stroke occurring in June of this year. He returned to the hospital because of worsening word finding difficulties and dysarthria. Repeat MRI of the brain didn't reveal worsening of prior infarcts. With the patient's history of atrial fibrillation, the patient was restarted on Eliquis was and discussion was had with the family regarding the risk of bleeding versus further strokes occurring, without anticoagulation. Objective - Vital Signs Vital signs: Vital Signs Temp 98.3 F 08/02/21 08:45 Pulse 85 08/02/21 08:45 Resp 18 08/02/21 08:45 BP 166/87 08/02/21 08:45 Pulse Ox 97 08/02/21 08:45 Intake & Output 08/01/21 08/02/21 08/02/21 18:59 06:59 18:59 Intake Total 490 Balance 490 Intake: Oral 490 Other: Voiding Method Toilet Toilet Diaper Diaper # Voids 3 1 - Exam Gen.: The patient is reclining in the bed. He is in no acute distress. HEENT: Head is atraumatic, normocephalic. Fundus not visualized. There is no scleral icterus. Mucous membranes are moist. Neurological examination Mental status: The patient is awake and alert. He is markedly hard of hearing. His speech is very dysarthric. Cranial nerves: Not formally assessed. There is no obvious racial asymmetry. - Labs CBC & Chem 7: 07/31/21 14:59 07/31/21 14:59 Assessment and Plan Assessment: Acute ischemic stroke over the left hemisphere seems embolic (atrial fibrillation and not sure if having any plaque dislodging from left ICA occlusion). Presented with word finding difficulty (expressive aphasia) and stated had worsening of dyarthria. Recent stroke with multi-infarct on left hemispheric towards end of 06/2021 Dysarthria due to above Atrial fibrillation Left ICA occlusion Right ICA stenosis Hypertension History of lumbar puncture over the L4-L5 with right [place] [address] resection Plan: 1. Awaiting 2-D echocardiogram results 2. Awaiting transfer to [facility] for further care 3. Continue to monitor neurologic status 4. Notify neurology if there are any worsening of symptoms Time with Patient: Less than 30 (Spent 10 minutes with patient via telemedicine)
--- NOTE | 2021-08-02 16:18 | P.PN ---
Subjective HISTORY OF PRESENTING ILLNESS This is a pleasant 86-year-old male past medical history significant for CVA 06/2021, hypertension, dyslipidemia, persistent atrial fibrillation on Eliquis, carotid stenosis. He follows in the office with Dr. Montemayor. We have been asked to see in consultation for atrial fibrillation. Patient presents to the emergency department with complaints of difficulty with speech. Patient had difficulty word finding and confusion at home, was brought to the emergency department. He denies any chest pain, shortness of breath. Yesterday evening at dinner patient had some palpitations, Biological alerted them that patient was in atrial fibrillation with HR 110, and a few moments later patient developed word finding difficulties accompanied by mild slurred speech. Second episode of this in 2 days. DIAGNOSTICS EKG reveals atrial fibrillation, heart rate [address] revealed new area of low attenuation of the left parietal lobe correlate first 2 ischemia. No evidence of acute hemorrhage. Brain MRI Redemonstrated multiple left cerebral infarct with distribution suggestive of embolic phenomenon. May be minimally progressive prior examination on 07/14/2021 with the largest lesion on today's exam the left posterior frontal wright radiata. Telemetry tracings indicate atrial fibrillation with controlled ventricular ra gogo Current home medications include Eliquis 5 mg twice a day, aspirin 80 mg daily, atorvastatin 80 mg nightly, lisinoprilhydrochlorothiazide 1012 0.5 mg daily, metoprolol tartrate 50 mg twice a day Echocardiogram 07/14/2021 revealed EF of 5055 percent, mild to moderate aortic stenosis with a mean gradient of 20 mmHg Carotid Doppler revealed bilateral plaque with occlusion of the left ICA, 5069 percent stenosis of the right ICA Lexiscan stress test 07/11/2021 was negative for reversible ischemia 08/02 Patient seen and examined. Patient denies any chest pain or pressure. Denies any shortness breath. Has been continued on Eliquis with aspirin changed to Plavix. Patient is awaiting transfer to [facility] for second opinion. PHYSICAL EXAMINATION Vitals reviewed CONSTITUTIONAL: No apparent distress. HEENT: Head is normocephalic. Pupils are equal, round. Sclerae anicteric. Mucous membranes of the mouth are moist. No JVD. No carotid bruit. CHEST EXAMINATION: Lungs are clear to auscultation. No chest wall tenderness is noted on palpation or with deep breathing. HEART EXAMINATION: Regular rate and rhythm. S1, S2 heard. No murmurs, gallops or rub. ABDOMEN: Soft, nontender. Positive bowel sounds. EXTREMITIES: 2+ peripheral pulses, no lower extremity edema and no calf te nderness. NEUROLOGIC EXAMINATION: Patient is awake, alert and oriented x3. ASSESSMENT Acute ischemic stroke Expressive Aphasia Recent CVA 06/2021 Persistent atrial fibrillation on Eliquis Carotid stenosis, occluded left ICA, 50-69% stenosis seen in right ICA PLAN Patient was only on Eliquis for 2.5 weeks and does not appear to be a failure of Eliquis. Patient with additional carotid disease. Continue with medical therapy. 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 Patient desiring s econd opinion and awaiting transfer to [facility]. No further recommendations from cardiology standpoint. Please call with any questions. Objective - Vital Signs Vital signs: Vital Signs Temp 97.5 F L 08/02/21 13:00 Pulse 79 08/02/21 13:00 Resp 18 08/02/21 13:00 BP 106/54 08/02/21 13:00 Pulse Ox 95 08/02/21 13:00 Intake & Output 08/01/21 08/02/21 08/02/21 18:59 06:59 18:59 Intake Total 490 Balance 490 Intake: Oral 490 Other: Voiding Method Toilet Toilet Diaper Diaper # Voids 3 1 - Labs CBC & Chem 7: 07/31/21 14:59 07/31/21 14:59
[2021-08-02] MEDS: ATORVASTATIN 80 MG TAB PO SCH (20:34)
[2021-08-03] MEDS: SODIUM CHLORIDE 0.9% 1,000 ML IV SCH ×3 (08:56→20:44)
[2021-08-03] MEDS: CLOPIDOGREL 75 MG TAB PO SCH (08:57)
[2021-08-03] MEDS: METOPROLOL TARTRATE 50 MG TAB PO SCH ×2 (08:57→20:39)
[2021-08-03] MEDS: APIXABAN 5 MG TAB PO SCH ×2 (08:57→20:39)
[2021-08-03] MEDS: LISINOPRIL-HCTZ 10-12.5 MG 1 EACH TAB PO SCH (08:57)
[2021-08-03] MEDS: PSYLLIUM HUSK 100% 6 GM PACKET PO SCH ×2 (08:58→20:41)
--- NOTE | 2021-08-03 16:10 | P.PN ---
Subjective Progress Note Date: 08/03/21 Principal diagnosis: slurred speech Still with slurred speech. No new focal deficits. No headaches. No cp or sob. Objective - Vital Signs Vital signs: Vital Signs Temp 97.4 F L 08/03/21 12:00 Pulse 63 08/03/21 12:00 Resp 18 08/03/21 12:00 BP 101/67 08/03/21 12:00 Pulse Ox 95 08/03/21 12:00 Intake & Output 08/02/21 08/03/21 08/03/21 18:59 06:59 18:59 Intake Total 600 Balance 600 Intake: Oral 600 Other: Voiding Method Toilet Toilet Toilet Diaper Diaper Diaper # Voids 3 2 1 - Exam Constitutional: No acute distress, conversant, pleasant Eyes:Anicteric sclerae, moist conjunctiva, no lid-lag, PERRLA, ENMT: Oropharynx clear, no erythema, exudates Neck: Supple, FROM, no masses, or JVD, No carotid bruits, No thyromegaly Lungs: Clear to auscultation, Clear to percussion, Normal respiratory effort, no accessory muscle use Cardiovascular: Heart regular in rate and rhythm, No murmurs, gallops, or rubs, No peripheral edema Abdominal: Soft, Nontender, no guarding, rebound or rigidity, Normoactive bowel sounds, No hepatomegaly, No splenomegaly, No palpable mass Skin: Normal temperature, tone, texture, turgor, no induration, No subcutaneous nodules, No rash, lesions, No ulcers Extremities: No digital cyanosis, No clubbing, Pedal pulses intact and symmetrical, Radial pulses intact and symmetrical, No calf tenderness Psychiatric: Alert and oriented to person, place and time, appropriate affect, intact judgement Neuro: speech is slurred Muscles Strength 5/5 in all 4 extremities, Sensation to light touch grossly present throughout, Cranial nerves II-XII grossly intact, no focal sensory deficits - Labs CBC & Chem 7: 07/31/21 14:59 07/31/21 14:59 Assessment and Plan Plan: 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 -Continue NIH stroke assessment as well as neuro checks every 4 hours. -Neurology following, d/c aspirin continue eliquis and plavix -Continue atorvastatin 80 mg nightly -Cardiology consulted, appreciate recommendations. -Vascular surgery consulted, appreciate further recommendations--no surgical intervention indicated. -Recent echocardiogram completed 07/14/21 revealed EF of 50-55% with moderate concentric left ventricular hypertrophy and mild to moderate aortic stenosis and mild mitral and pulmonic regurgitation, no pulmonary hypertension. -Continuous telemetry monitoring Hypertension -Continue bp meds Hyperlipidemia -Continue daily medication regimen with atorvastatin 80 mg nightly. Patient's family requested transfer to [facility] today for second opinion. Patient will be transferred, call completed. Patient accepted by physician at [facility]. Awaiting bed to be available at the [facility] CODE STATUS: Full code DVT prophylaxis: SCDs Discussed with: Patient and RN Anticipated discharge date: Once bed available at [facility] Anticipated discharge place: [facility] A total of 45 minutes was spent on the care of this complex patient more than 50% of the time was spent in counseling and care coordination.
[2021-08-03] MEDS: ATORVASTATIN 80 MG TAB PO SCH (20:39)
[2021-08-04] MEDS: PSYLLIUM HUSK 100% 6 GM PACKET PO SCH ×2 (09:03→20:47)
[2021-08-04] MEDS: APIXABAN 5 MG TAB PO SCH ×2 (09:03→20:47)
[2021-08-04] MEDS: CLOPIDOGREL 75 MG TAB PO SCH (09:03)
[2021-08-04] MEDS: LISINOPRIL-HCTZ 10-12.5 MG 1 EACH TAB PO SCH (09:03)
[2021-08-04] MEDS: METOPROLOL TARTRATE 50 MG TAB PO SCH ×2 (09:04→20:47)
--- NOTE | 2021-08-04 13:32 | P.PN ---
Subjective Progress Note Date: 08/04/21 Hospital course: Patient is a very pleasant 86-year-old male with a past medical history of hypertension, hyperlipidemia, and BPH with recent diagnosis of new onset persistent atrial fibrillation, acute embolic CVA, occlusion of left internal carotid artery and stenosis of right internal carotid artery after presenting to the emergency department on 07/13/21 with a chief complaint of slurred speech and was discharged home on 07/17/21 on aspirin, atorvastatin, and Eliquis and instructed to follow up outpatient with neurologist, vascular surgery, and cardiology. Patient returned to the emergency department on 07/31/21 as instructed by his neurologist for evaluation of difficulties with speech beginning the prior evening around 7 PM. Patient reports since discharge home from hospital on 07/17/21 he has had 2 significant episodes in which he had significant difficulties with his speech, once yesterday and again today. Patient and his son at bedside reports this started yesterday evening around 7 PM just before sitting down to eat dinner, he reported patient had some palpitations and the Biological alerted them that patient was back into RVR with heart rate of 110 and a few moments later patient developed word finding difficulties accompanied by mild slurred speech. Minor episodes continue with 2 major episodes reported in which patient had significant slurred speech and word finding difficulties. Patient continues to have noted word finding difficulties and slurring of his speech upon physical examination. He remains in atrial fibrillation with a controlled ventricular rate in the 70s at this time. Patient denies experiencing any other neurological deficits or complaints including headache, lightheadedness, dizziness, chest pain, palpitations, shortness of breath, or experiencing any focal numbness/weakness/tingling in his extremities. In the emergency department, patient underwent full evaluation. A CT brain was completed revealing a new area of low attenuation in the left parietal lobe correlating for acute ischemia with no evidence of acute hemorrhage. CBC, BMP, and coags unremarkable. Patient was admitted under our services with consultation to neurology, cardiology, and vascular surgery. MRI completed revealing redemonstration of multiple left cerebral infarcts with a distribution suggestive of embolic phenomenon, may be minimally progressed from prior examination on 07/14/21 with the largest lesion on today's examination in the left posterior frontal wright radiata and is minimumly larger. Repeat carotid Dopplers revealing bilateral heterogeneous plaque with occlusion of left ICA, cardiac dysrhythmia and 50-69% stenosis of the right ICA. Physical exam: Patient seen and fully evaluated at bedside this morning. He continues with very mild dysarthria, but this seemed to be improving. Patient showing no other neurological deficits at this time. Patient denies headache, lightheadedness, dizziness, chest pain, palpitations, shortness of breath, or experiencing any numbness/tingling/weakness in his extremities. Patient is currently awaiting open bed at [facility]. Vital signs reviewed and stable. General: Nontoxic, no distress and appears stated age. Derm: Skin warm and dry, normal coloration for ethnicity. Head: Atraumatic, normocephalic and symmetric. Eyes: EOMs intact, no lid lag, and anicteric sclera Mouth: no lip lesions, mucus membranes moist Cardiovascular: Irregularly irregular with normal S1S2, systolic murmur, positive posterior tibial pulses bilaterally, and cap refill < 2 seconds. Lungs: Respirations even, regular, and unlabored on room air. Lungs CTA bilaterally, no rhonchi, no rales, no wheezing, and no accessory muscle usage. Abdominal: soft, nontender to palpation, no guarding, no appreciable o rganomegaly Ext: ROM intact. No gross muscle atrophy, no edema, no contractures Neuro: Mild dysarthria, face symmetrical and CN II-XII grossly intact with no noted focal neuro deficits Psych: Alert and oriented to person, place, time, and situation. 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 -Continue NIH stroke assessment as well as neuro checks every 4 hours. -Neurology following, discontinued aspirin recommending continuation with Eliquis and Plavix -Cardiology consulted, stated AMBER will not change management facilitator of care at this time recommending no further interventions. -Vascular surgery consulted, recommended no surgical interventions at this time -Continue atorvastatin 80 mg nightly and Plavix daily. -Recent echocardiogram completed 07/14/21 revealed EF of 50-55% with moderate concentric left ventricular hypertrophy and mild to moderate aortic stenosis and mild mitral and pulmonic regurgitation, no pulmonary hypertension. -Continuous telemetry monitoring -Patient awaiting bed availability at [facility]. Hypertension -Allow for permissive hypertension over the next 24-48 hours secondary to acute ischemic CVA, we will continue with daily metoprolol 50 mg twice a day to prev ent patient from going back into A. fib RVR and hold lisinopril/hydrochlorothiazide at this time. -Monitor vital signs. Hyperlipidemia -Continue daily medication regimen with atorvastatin 80 mg nightly. The patient is admitted with an anticipated greater than 2 midnight stay for evaluation of acute ischemic stroke of left parietal lobe CODE STATUS: Full code DVT prophylaxis: SCDs Discussed with: Patient and RN Anticipated discharge date: Awaiting bed assignment Anticipated discharge place: Transfer to [facility] A total of 39 minutes was spent on the care of this complex patient more than 50% of the time was spent in counseling and care coordination. I reviewed the documentation as provided by the NABILA above, who is the original author of this note. I agree with the documented assessment and plan, with the following changes: None Objective - Vital Signs Vital signs: Vital Signs Temp 96.9 F L 08/04/21 04:00 Pulse 61 08/04/21 04:00 Resp 18 08/04/21 04:00 BP 119/81 08/04/21 04:00 Pulse Ox 96 08/04/21 04:00 Intake & Output 08/03/21 08/04/21 08/04/21 18:59 06:59 18:59 Intake Total 720 Balance 720 Intake: Oral 720 Other: Voiding Method Toilet Toilet Diaper Diaper # Voids 2 1 - Labs CBC & Chem 7: 07/31/21 14:59 07/31/21 14:59
--- NOTE | 2021-08-04 19:08 | P.PN ---
Subjective Progress Note Date: 08/04/21 Patient is an 86-year-old right-handed male presented with recurrent stroke over left MCA territory. Patient came with his first stroke on 07/13/2021 and was diagnosed with left ICA occlusion and new onset atrial fibrillation. Patient was taking aspirin previously but had stopped taking aspirin for a few weeks prior to this stroke. Patient was discharged on Eliquis and aspirin 81 mg daily. Patient was doing better after discharge getting speech therapy. However on one day, the speech got worse and he was readmitted to the hospital. With worsening of symptoms, the aspirin has been discontinued and started on Plavix by Dr. Jimenez Veronica. Family wishes patient to be transferred to [facility]. Patient had no other focal symptoms besides slurred speech. No numbness tingling or focal weakness. 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 Patient is nondiabetic, never smoker. He does have hypertension for 20-30 years. Repeat MRI of the brain on my review revealed worsening of the left sided hemispheric ischemic infarcts, particularly the left frontal region. There are small tiny areas of acute ischemia involving the left temporal region, not seen in the previous MRI. Patient's blood pressure tends to decrease and he lays down. Objective - Vital Signs Vital signs: Vital Signs Temp 97.2 F L 08/04/21 16:05 Pulse 67 08/04/21 16:05 Resp 16 08/04/21 16:05 BP 108/68 08/04/21 16:05 Pulse Ox 96 08/04/21 16:05 Intake & Output 08/03/21 08/04/21 08/04/21 18:59 06:59 18:59 Intake Total 720 1800 Balance 720 1800 Intake: Oral 720 1800 Other: Voiding Method Toilet Toilet Toilet Diaper Diaper Diaper # Voids 2 1 1 - Exam Patient is an elderly male, in no acute distress. Patient is alert awake oriented to time place and person. Speech is mild to moderately dysarthric and language functions are normal. Patient can name and repeat very well. Attention, concentration and fund of knowledge is adequate. On cranial examination, pupils are round and reacting to light, visual main are full on confrontation, with no neglect. His extraocular muscles are intact with no nystagmus. Face is symmetric, tongue protrudes to the midline. Palatal elevation and sensation normal, hearing and shoulder shrug normal, facial sensation normal. Shoulder shrug normal. On muscle strength testing, there is right sided pronation, no drift. His strength is normal in arms and legs distally and proximally. Patient has a chronic right foot drop and uses an AFO. Sensory to touch is equal with no neglect on double simultaneous stimulation. Cerebellar function showed no ataxia for [id number] testing. Tone and bulk of muscles normal. Gait deferred. On general examination, S1-S2 audible. Abdomen is soft nontender. Bowel sounds present, no organomegaly. Chest is clear to auscultation. Peripheral pulses are present. No edema. - Labs CBC & Chem 7: 07/31/21 14:59 07/31/21 14:59 Assessment and Plan Assessment: Acute ischemic stroke over the left hemisphere seems embolic. Suspect artery to artery embolism. 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 Patient also has atrial fibrillation, currently on Eliquis. Patient has presented with word finding difficulty (expressive aphasia) and stated had worsening of dyarthria. Recent stroke with multi-infarct on left hemispheric 07/13/2021. Dysarthria due to above Atrial fibrillation Left ICA occlusion Right ICA stenosis Hypertension History of lumbar puncture over the L4-L5 with right foot drop in 1974 status post resection Plan: 1. Awaiting 2-D echocardiogram results 2. Awaiting transfer to [facility] for further care 3. Continue to monitor neurologic status 4. CTA of head and neck from 07/13/2021 reported as occlusion of left ICA at its origin. There is filling of the left SERGEY and MCA from anterior communicating artery. 40% stenosis of the origin of right ICA. 5. Agree with continuing Eliquis 5 mg twice a day and Plavix 75 mg daily. 6. MRI of the brain revealed redemonstration of multiple left cerebral infarcts with a distribution suggestive of embolic phenomenon. This may be minimally progressed from the prior examination 07/14/2021 with the largest lesion on current examination in the left posterior frontal wright radiata and is min imally larger. I reviewed MRI and agree with the findings. There is an increase in the size of the stroke in the left hemispheric region particularly the left frontal ischemic lesion in the centrum semiovale appears larger as compared to the previous MRI. Also there are a couple tiny areas of ischemia in the left temporal region, not seen in the previous MRI. 7. Lipid panel with cholesterol 94, LDL 36, HDL 36 and triglycerides 99. Continue high-dose statins Lipitor 80 mg. 8. Check hemoglobin A1c 9. Patient's blood pressure is running somewhat low. I would avoid hypotension. Maintain systolic blood pressure between 130 to 150.
[2021-08-04] MEDS: ATORVASTATIN 80 MG TAB PO SCH (20:47)
[2021-08-04] MEDS: DOCUSATE 100 MG CAP PO SCH (20:47)
[2021-08-05 07:09] LABS: HCT 50.5 % (39.0-53.0); HGB 16.2 gm/dL (13.0-17.5); MCH 31.1 pg (25.0-35.0); MCV 96.9 fL (80.0-100.0); Mean Platelet Volume 7.8; Platelet Count 219 k/uL (150-450); RBC 5.21 m/uL (4.30-5.90); RDW 12.6 % (11.5-15.5); WBC 8.2 k/uL (3.8-10.6)
[2021-08-05 07:31] LABS: ALT 52 U/L (4-49); AST 38 U/L (17-59); African American GFR (CKD) >90 (>60 ml/min/1.73 sqM); Albumin 3.6 g/dL (3.5-5.0); Alkaline Phosphatase 75 U/L (38-126); Anion Gap 7 mmol/L; Blood Urea Nitrogen 21 mg/dL (9-20); Carbon Dioxide 28 mmol/L (22-30); Chloride 102 mmol/L (98-107); Glucose 101 mg/dL (74-99); Magnesium 2.1 mg/dL (1.6-2.3); Non-African American GFR(CKD) 78 (>60 ml/min/1.73 sqM); Sodium 137 mmol/L (137-145); Total Bilirubin 1.1 mg/dL (0.2-1.3); Total Protein 6.2 g/dL (6.3-8.2)
[2021-08-05 07:42] LABS: Potassium 4.4 mmol/L (3.5-5.1)
[2021-08-05] MEDS: CLOPIDOGREL 75 MG TAB PO SCH (08:41)
[2021-08-05] MEDS: DOCUSATE 100 MG CAP PO SCH ×2 (08:41→20:31)
[2021-08-05] MEDS: METOPROLOL TARTRATE 50 MG TAB PO SCH ×2 (08:41→20:31)
[2021-08-05] MEDS: PSYLLIUM HUSK 100% 6 GM PACKET PO SCH ×2 (08:41→20:31)
[2021-08-05] MEDS: APIXABAN 5 MG TAB PO SCH ×2 (08:41→20:31)
[2021-08-05] MEDS: LISINOPRIL-HCTZ 10-12.5 MG 1 EACH TAB PO SCH (08:41)
--- NOTE | 2021-08-05 13:18 | CA ---
Transthoracic Echo Report Name: Eric Cheney Age: 86 Gender: M : 1935 Exam Date: 08/01/2021 08:35 Exam Location: [facility] Ht (in): 71 Wt (lb): 175 Ordering Physician: Jimenez Veronica MD Attending/Referring Phys: [employer] Lift Compresser Kylie Juan RDCS Procedure CPT: Indications: limited with bubble study. stroke Cardiac Hx: Technical Quality: Fair Contrast 1: Agitated Saline Total Dose (mL): 2 Contrast 2: Total Dose (mL): MEASUREMENTS (Male / Female) Normal Values FINDINGS Left Ventricle Left ventricular ejection fraction is estimated at 55-60 %. Right Ventricle Right Atrium Negative agitated saline bubble study for right to left shunt. Left Atrium Mitral Valve Aortic Valve Tricuspid Valve Pulmonic Valve Pericardium Aorta CONCLUSIONS Left ventricular ejection fraction is estimated at 55-60 %. Negative agitated saline bubble study for right to left shunt. Previewed by: Dr. Obed Flores DO (Electronically Signed) Final Date: 01 Aug 2021 12:49
--- NOTE | 2021-08-05 17:03 | P.PN ---
Subjective Progress Note Date: 08/05/21 Hospital course: Patient is a very pleasant 86-year-old male with a past medical history of hypertension, hyperlipidemia, and BPH with recent diagnosis of new onset persistent atrial fibrillation, acute embolic CVA, occlusion of left internal carotid artery and stenosis of right internal carotid artery after presenting to the emergency department on 07/13/21 with a chief complaint of slurred speech and was discharged home on 07/17/21 on aspirin, atorvastatin, and Eliquis and instructed to follow up outpatient with neurologist, vascular surgery, and cardiology. Patient returned to the emergency department on 07/31/21 as instructed by his neurologist for evaluation of difficulties with speech beginning the prior evening around 7 PM. Patient reports since discharge home from hospital on 07/17/21 he has had 2 significant episodes in which he had significant difficulties with his speech, once yesterday and again today. Patient and his son at bedside reports this started yesterday evening around 7 PM just before sitting down to eat dinner, he reported patient had some palpitations and the Biological alerted them that patient was back into RVR with heart rate of 110 and a few moments later patient developed word finding difficulties accompanied by mild slurred speech. Minor episodes continue with 2 major episodes reported in which patient had significant slurred speech and word finding difficulties. Patient continues to have noted word finding difficulties and slurring of his speech upon physical examination. He remains in atrial fibrillation with a controlled ventricular rate in the 70s at this time. Patient denies experiencing any other neurological deficits or complaints including headache, lightheadedness, dizziness, chest pain, palpitations, shortness of breath, or experiencing any focal numbness/weakness/tingling in his extremities. In the emergency department, patient underwent full evaluation. A CT brain was completed revealing a new area of low attenuation in the left parietal lobe correlating for acute ischemia with no evidence of acute hemorrhage. CBC, BMP, and coags unremarkable. Patient was admitted under our services with consultation to neurology, cardiology, and vascular surgery. MRI completed revealing redemonstration of multiple left cerebral infarcts with a distribution suggestive of embolic phenomenon, may be minimally progressed from prior examination on 07/14/21 with the largest lesion on today's examination in the left posterior frontal wright radiata and is minimumly larger. Repeat carotid Dopplers revealing bilateral heterogeneous plaque with occlusion of left ICA, cardiac dysrhythmia and 50-69% stenosis of the right ICA. Physical exam: Patient seen and fully evaluated at bedside this morning. He continues with mild dysarthria and exhibiting no further neuro deficits at this time. Discussed all results with patient and patient's son at bedside this morning. We are currently awaiting bed assignment at [facility] after patient was accepted by physician for transfer. Morning labs showing no significant abnormalities. Vital signs unremarkable. Patient medically stable for transfer once bed is available. Patient continues to deny any other complaints including headache, lightheadedness, dizziness, chest pain, palpitations, shortness of breath, or experiencing any numbness/tingling/weakness in his extremities. Cindy ent is currently awaiting open bed at [facility]. Vital signs reviewed and stable. General: Nontoxic, no distress and appears stated age. Derm: Skin warm and dry, normal coloration for ethnicity. Head: Atraumatic, normocephalic and symmetric. Eyes: EOMs intact, no lid lag, and anicteric sclera Mouth: no lip lesions, mucus membranes moist Cardiovascular: Irregularly irregular with normal S1S2, systolic murmur, positive posterior tibial pulses bilaterally, and cap refill < 2 seconds. Lungs: Respirations even, regular, and unlabored on room air. Lungs CTA bilaterally, no rhonchi, no rales, no wheezing, and no accessory muscle usage. Abdominal: soft, nontender to palpation, no guarding, no appreciable organomegaly Ext: ROM intact. No gross muscle atrophy, no edema, no contractures Neuro: Mild dysarthria, face symmetrical and CN II-XII grossly intact with no noted focal neuro deficits. GCS 15. Psych: Alert and oriented to person, place, time, and situation. 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 -Continue NIH stroke assessment as well as neuro checks every 4 hours. -Neurology following, discontinued aspirin recommending continuation with Eliquis and Plavix -Cardiology consulted, stated AMBER will not exchange clerk of care at this time recommending no further interventions. -Vascular surgery consulted, recommended no surgical interventions at this time -Continue atorvastatin 80 mg nightly and Plavix daily. -Recent echocardiogram completed 07/14/21 revealed EF of 50-55% with moderate concentric left ventricular hypertrophy and mild to moderate aortic stenosis and mild mitral and pulmonic regurgitation, no pulmonary hypertension. -Continuous telemetry monitoring -Patient awaiting bed availability at [facility]. Hypertension -Allow for permissive hypertension over the next 24-48 hours secondary to acute ischemic CVA, we will continue with daily metoprolol 50 mg twice a day to prevent patient from going back into A. fib RVR and hold lisinopril/hydrochlorothiazide at this time. -Monitor vital signs. Hyperlipidemia -Continue daily medication regimen with atorvastatin 80 mg nightly. The patient is admitted with an anticipated greater than 2 midnight stay for evaluation of acute ischemic stroke of left parietal lobe CODE STATUS: Full code DVT prophylaxis: SCDs Discussed with: Patient, patient's son and RN Anticipated discharge date: Awaiting bed assignment Anticipated discharge place: Transfer to [facility] A total of 39 minutes was spent on the care of this complex patient more than 50% of the time was spent in counseling and care coordination. Objective - Vital Signs Vital signs: Vital Signs Temp 97.3 F L 08/05/21 04:00 Pulse 67 08/05/21 04:00 Resp 18 08/05/21 04:00 BP 132/88 08/05/21 04:00 Pulse Ox 96 08/05/21 04:00 Intake & Output 08/04/21 08/05/21 08/05/21 18:59 06:59 18:59 Intake Total 1800 240 Balance 1800 240 Intake: Oral 1800 240 Other: Voiding Method Toilet Toilet Diaper Diaper # Voids 1 1 - Labs CBC & Chem 7: 08/05/21 05:57 08/05/21 05:57 Labs: Abnormal Lab Results - Last 24 Hours (Table) 08/05/21 Range/Units 05:57 BUN 21 H (9-20) mg/dL Glucose 101 H (74-99) mg/dL ALT 52 H (4-49) U/L Total Protein 6.2 L (6.3-8.2) g/dL
[2021-08-05] MEDS: ATORVASTATIN 80 MG TAB PO SCH (20:31)
--- NOTE | 2021-08-06 09:06 | P.PN ---
Subjective Progress Note Date: 08/05/21 08/05/2021: Patient was seen for a follow-up. Patient's son was also present. Per patient and patient's son report, his speech is improved. Speech therapy also notices that the speech has improved. No new focal symptoms. Telemetry monitoring showing atrial fibrillation, and the heart rate between 48- 60. Some PVCs. 08/04/2021: Patient is an 86-year-old right-handed male presented with recurrent stroke over left MCA territory. Patient came with his first stroke on 07/13/2021 and was diagnosed with left ICA occlusion and new onset atrial fibrillation. Patient was taking aspirin previously but had stopped taking aspirin for a few weeks prior to this stroke. Patient was discharged on Eliquis and aspirin 81 mg daily. Patient was doing better after discharge getting speech therapy. However on one day, the speech got worse and he was readmitted to the hospital. With worsening of symptoms, the aspirin has been discontinued and started on Plavix by Dr. Jimenez Veronica. Family wishes patient to be transferred to [facility]. Patient had no other focal symptoms besides slurred speech. No numbness tingling or focal weakness. 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 Patient is nondiabetic, never smoker. He does have hypertension for 20-30 years. Repeat MRI of the brain on my review revealed worsening of the left sided hemis pheric ischemic infarcts, particularly the left frontal region. There are small tiny areas of acute ischemia involving the left temporal region, not seen in the previous MRI. Patient's blood pressure tends to decrease and he lays down. Objective - Vital Signs Vital signs: Vital Signs Temp 97.3 F L 08/05/21 15:08 Pulse 99 08/05/21 15:08 Resp 18 08/05/21 15:08 BP 93/54 08/05/21 15:08 Pulse Ox 95 08/05/21 15:08 Intake & Output 08/04/21 08/05/21 08/05/21 18:59 06:59 18:59 Intake Total 1800 240 240 Output Total 450 Balance 1800 240 -210 Intake: Oral 1800 240 240 Output: Urine 450 Other: Voiding Method Toilet Toilet Toilet Diaper Diaper Diaper # Voids 1 1 # Bowel Movements 0 - Exam Patient is an elderly male, in no acute distress. Patient is alert awake oriented to time place and person. Speech is mild to moderately dysarthric and language functions are normal. Patient can name and repeat very well. Attention, concentration and fund of knowledge is adequate. Patient is more fluent. On cranial examination, pupils are round and reacting to light, visual main are full on confrontation, with no neglect. His extraocular muscles are intact with no nystagmus. Face is symmetric, tongue protrudes to the midline. Palatal elevation and sensation normal, hearing and shoulder shrug normal, facial sensation normal. Shoulder shrug normal. On muscle strength testing, there is right sided pronation, no drift. His strength is normal in arms and legs distally and proximally. Patient has a chronic right foot drop and uses an AFO. Sensory to touch is equal with no neglect on double simultaneous stimulation. Cerebellar function showed no ataxia for [id number] testing. Tone and bulk of muscles normal. Gait patient walked from bathroom to his bed and appears to have steppage gait on the right because of chronic foot drop. On general examination, S1-S2 audible. Abdomen is soft nontender. Bowel sounds present, no organomegaly. Chest is clear to auscultation. Peripheral pulses are present. No edema. - Labs CBC & Chem 7: 08/05/21 05:57 08/05/21 05:57 Labs: Abnormal Lab Results - Last 24 Hours (Table) 08/05/21 Range/Units 05:57 BUN 21 H (9-20) mg/dL Glucose 101 H (74-99) mg/dL ALT 52 H (4-49) U/L Total Protein 6.2 L (6.3-8.2) g/dL Assessment and Plan Assessment: Acute ischemic stroke over the left hemisphere seems embolic. Suspect artery to artery embolism. 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 Patient a lso has atrial fibrillation, currently on Eliquis. Patient has presented with word finding difficulty (expressive aphasia) and stated had worsening of dyarthria. Recent stroke with multi-infarct on left hemispheric 07/13/2021. Dysarthria due to above Atrial fibrillation Left ICA occlusion Right ICA stenosis Hypertension History of lumbar puncture over the L4-L5 with right foot drop in 1974 status post resection Plan: 1. Awaiting 2-D echocardiogram results. Report still pending at the time of this dictation. 2. Awaiting transfer to [facility] for further care 3. Continue to monitor neurologic status 4. CTA of head and neck from 07/13/2021 reported as occlusion of left ICA at its origin. There is filling of the left SERGEY and MCA from anterior communicating artery. 40% stenosis of the origin of right ICA. I personally reviewed CTA of head and neck as well as discussed with Dr. Eisenberg, who agreed that these complete occlusion of the left ICA in the neck all the way to [place]. No significant stenosis of the right ICA or major vessels in the [place]. 5. Agree with continuing Eliquis 5 mg twice a day and Plavix 75 mg daily. 6. MRI of the brain revealed redemonstration of multiple left cerebral infarcts with a distribution suggestive of embolic phenomenon. This may be minimally progressed from the prior examination 07/14/2021 with the largest lesion on current examination in the left posterior frontal wright radiata and is minimally larger. I reviewed MRI and agree with the findings. There is an increase in the size of the stroke in the left hemispheric region particularly the left frontal ischemic lesion in the centrum semiovale appears larger as compared to the previous MRI. Also there are a couple tiny areas of ischemia in the left temporal region, not seen in the previous MRI. 7. Lipid panel with cholesterol 94, LDL 36, HDL 36 and triglycerides 99. Continue high-dose statins Lipitor 80 mg. 8. Hemoglobin A1c 6.0 9. Patient's blood pressure is running somewhat low. I would avoid hypotension. Maintain systolic blood pressure between 130 to 150.
[2021-08-06] MEDS: CLOPIDOGREL 75 MG TAB PO SCH (09:41)
[2021-08-06] MEDS: APIXABAN 5 MG TAB PO SCH ×2 (09:41→20:19)
[2021-08-06] MEDS: METOPROLOL TARTRATE 50 MG TAB PO SCH ×2 (09:42→20:19)
[2021-08-06] MEDS: DOCUSATE 100 MG CAP PO SCH ×2 (09:42→20:19)
[2021-08-06] MEDS: LISINOPRIL-HCTZ 10-12.5 MG 1 EACH TAB PO SCH (09:42)
[2021-08-06] MEDS: PSYLLIUM HUSK 100% 6 GM PACKET PO SCH ×2 (09:42→20:19)
--- NOTE | 2021-08-06 12:01 | CDI ---
Documentation Clarification Form Date: 08/06/2021 11:25:36 AM From: Veronica Segura RN, CCDS Admit Date: 07/31/2021 04:12:00 PM Patient Name: Eric Cheney Visit Number: [id number] Discharge Date: ATTENTION: The Clinical Documentation Specialists (CDI) and [facility] Coding Staff appreciate your assistance in clarifying documentation. Please respond to the clarification below the line at the bottom and electronically sign. The CDI & [facility] Coding staff will review the response and follow-up if needed. Please note: Queries are made part of the Legal Health Record. If you have any questions, please contact the author of this message via ITS. Dr. Jacque Johnston Acute Ischemic CVA left parietal lobe is documented in the H/P and subsequent progress notes. Additional clarification regarding the ischemic CVA is requested. 08/05 Neurology Progress note: Acute ischemic stroke over the left hemisphere seems embolic. Suspect artery to artery embolism. 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 History/risk factors: Embolic CVA 07/13/21, Atrial fibrillation, Hypertension Clinical Indicators 86-year-old male return to ED after discharge on 07/17/21 with significant difficulties with speech, word finding difficulties and slurring of his speech upon physical exam. 07/31 CT Brain: new area of low attenuation in the left parietal lobe correlating for acute ischemia with no evidence of ac hemorrhage. 08/01 Carotid: Bilateral heterogeneous plaque with occlusion of left ICA. Cardiac dysrhythmia =. Findings suggest a 50-69 % stenosis of the right ICA 07/31 MRI: Remonstrated multiple left cerebral infarct with distribution suggestive of embolic phenomenon. May be minimally progressed from prior exam 07/14/21with the largest lesion on today's exam in the left posterior frontal wright radiate and is minimally larger. Nonspecific white matter changes, likely secondary to small vessel ischemic disease. 08/05 ECHO: Left ventricular EF is estimated at 55-60 % Negative agitated saline bubble study for right to left shunt. MRI/MRA: Treatment: Cardiac/Telemetry monitoring Eliquis 5 MB PO BID, Lipitor 80 MG PO HS, Plavix 75 MG PO Daily, Lopressor 50 mg PO BID NIH stroke assessment and neuro checks Q 4 hours Please further clarify the cause if known: Cause of Stroke/CVA of left parietal lobe? [ ] Stenosis/Occlusion [ ] Embolic [ ] Thrombolytic [ ] Other (please specify) [x] Unable to Determine (Template Last Revised: May 2020) MTDD
[2021-08-06 13:53] VITALS: BMI 23.1
--- NOTE | 2021-08-06 14:50 | P.PN ---
Subjective Progress Note Date: 08/06/21 Hospital course: Patient is a very pleasant 86-year-old male with a past medical history of hypertension, hyperlipidemia, and BPH with recent diagnosis of new onset persistent atrial fibrillation, acute embolic CVA, occlusion of left internal carotid artery and stenosis of right internal carotid artery after presenting to the emergency department on 07/13/21 with a chief complaint of slurred speech and was discharged home on 07/17/21 on aspirin, atorvastatin, and Eliquis and instructed to follow up outpatient with neurologist, vascular surgery, and cardiology. Patient returned to the emergency department on 07/31/21 as instructed by his neurologist for evaluation of difficulties with speech beginning the prior evening around 7 PM. Patient reports since discharge home from hospital on 07/17/21 he has had 2 significant episodes in which he had significant difficulties with his speech, once yesterday and again today. Patient and his son at bedside reports this started yesterday evening around 7 PM just before sitting down to eat dinner, he reported patient had some palpitations and the Biological alerted them that patient was back into RVR with heart rate of 110 and a few moments later patient developed word finding difficulties accompanied by mild slurred speech. Minor episodes continue with 2 major episodes reported in which patient had significant slurred speech and word finding difficulties. Patient continues to have noted word finding difficulties and slurring of his speech upon physical examination. He remains in atrial fibrillation with a controlled ventricular rate in the 70s at this time. Patient denies experiencing any other neurological deficits or complaints including headache, lightheadedness, dizziness, chest pain, palpitations, shortness of breath, or experiencing any focal numbness/weakness/tingling in his extremities. In the emergency department, patient underwent full evaluation. A CT brain was completed revealing a new area of low attenuation in the left parietal lobe correlating for acute ischemia with no evidence of acute hemorrhage. CBC, BMP, and coags unremarkable. Patient was admitted under our services with consultation to neurology, cardiology, and vascular surgery. MRI completed revealing redemonstration of multiple left cerebral infarcts with a distribution suggestive of embolic phenomenon, may be minimally progressed from prior examination on 07/14/21 with the largest lesion on today's examination in the left posterior frontal wright radiata and is minimumly larger. Repeat carotid Dopplers revealing bilateral heterogeneous plaque with occlusion of left ICA, cardiac dysrhythmia and 50-69% stenosis of the right ICA. Physical exam: Patient seen and fully evaluated at bedside this morning. He continues with mild dysarthria and exhibiting no further neuro deficits at this time. He continues to await bed assignment at [facility]. Covid PCR to be obtained as it is reported that [facility] may have a bed available later today. Patient otherwise continues to deny having any other complaints at this time including headache, lightheadedness, dizziness, chest pain, palpitations, shortness of breath, or experiencing any numbness/tingling/weakness in his extremities. Vital signs reviewed and stable. General: Nontoxic, no distress and appears stated age. Derm: Skin warm and dry, normal coloration for ethnicity. Head: Atraumatic, normocephalic and symmetric. Eyes: EOMs intact, no lid lag, and anicteric sclera Mouth: no lip lesions, mucus membranes moist Cardiovascular: Irregularly irregular with normal S1S2, systolic murmur, positive posterior tibial pulses bilaterally, and cap refill < 2 seconds. Lungs: Respirations even, regular, and unlabored on room air. Lungs CTA bilaterally, no rhonchi, no rales, no wheezing, and no accessory muscle usage. Abdominal: soft, nontender to palpation, no guarding, no appreciable organomegaly Ext: ROM intact. No gross muscle atrophy, no edema, no contractures Neuro: Mild dysarthria, face symmetrical and CN II-XII grossly intact with no noted focal neuro deficits. GCS 15. Psych: Alert and oriented to person, place, time, and situation. Appropriate and pleasant affect Assessment and Plan of Care: Acute ischemic stroke of left parietal lobe, likely embolic History of recent acute embolic CVA on 07/13/21 Occlusion of left internal carotid artery Stenosis of right carotid artery Persistent Atrial fibrillation -Continue with anticoagulation with Eliquis, dose was increased to 5 mg twice daily from previous 2.5 twice daily. -Continue NIH stroke assessment as well as neuro checks every 4 hours. 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 -Vascular surgery consulted, recommended no surgical interventions at this time -Continue atorvastatin 80 mg nightly and Plavix daily. -Recent echocardiogram completed 07/14/21 revealed EF of 50-55% with moderate concentric left ventricular hypertrophy and mild to moderate aortic stenosis and mild mitral and pulmonic regurgitation, no pulmonary hypertension. -Continuous telemetry monitoring -Patient awaiting bed availability at [facility]. Hypertension -Allow for permissive hypertension over the next 24-48 hours secondary to acute ischemic CVA, we will continue with daily metoprolol 50 mg twice a day to prevent patient from going back into A. fib RVR and hold lisinopril/hy drochlorothiazide at this time. -Monitor vital signs. Hyperlipidemia -Continue daily medication regimen with atorvastatin 80 mg nightly. The patient is admitted with an anticipated greater than 2 midnight stay for evaluation of acute ischemic stroke of left parietal lobe CODE STATUS: Full code DVT prophylaxis: SCDs Discussed with: Patient, patient's son and RN Anticipated discharge date: Awaiting bed assignment Anticipated discharge place: Transfer to [facility] A total of 37 minutes was spent on the care of this complex patient more than 50% of the time was spent in counseling and care coordination. Objective - Vital Signs Vital signs: Vital Signs Temp 97.3 F L 08/06/21 00:00 Pulse 77 08/06/21 04:00 Resp 18 08/06/21 04:00 BP 151/72 08/06/21 04:00 Pulse Ox 97 08/06/21 04:00 Intake & Output 08/05/21 08/06/21 08/06/21 18:59 06:59 18:59 Intake Total 240 118 Output Total 450 Balance -210 118 Intake: Oral 240 118 Output: Urine 450 Other: Voiding Method Toilet Toilet Diaper Diaper # Voids 2 # Bowel Movements 0 - Labs CBC & Chem 7: 08/05/21 05:57 08/05/21 05:57
--- NOTE | 2021-08-06 18:14 | P.DS ---
Providers Date of admission: 07/31/21 16:12 Expected date of discharge: 08/06/21 Attending physician: Jacque Johnston MD Consults: 07/31/21 16:13 Consult Physician Routine Consulting Provider: Jimenez Veronica Consult Reason/Comments: cva Do you want consulting provider notified?: Already Contacted Primary care physician: Clitfon Veronica [facility] Course: Transfer summary: Patient transferred to [facility] at this time. Acute ischemic stroke of left parietal lobe, likely embolic History of recent acute embolic CVA on 07/13/21 Occlusion of left internal carotid artery Stenosis of right carotid artery Persistent Atrial fibrillation Hypertension Hyperlipidemia Hospital Course: Patient is a very pleasant 86-year-old male with a past medical history of hypertension, hyperlipidemia, and BPH with recent diagnosis of new onset persistent atrial fibrillation, acute embolic CVA, occlusion of left internal carotid artery and stenosis of right internal carotid artery after presenting to the emergency department on 07/13/21 with a chief complaint of slurred speech and was discharged home on 07/17/21 on aspirin, atorvastatin, and Eliquis and instructed to follow up outpatient with neurologist, vascular surgery, and cardiology. Patient returned to the emergency department on 07/31/21 as instructed by his neurologist for evaluation of difficulties with speech beginning the prior evening around 7 PM. Patient reports since discharge home from hospital on 07/17/21 he has had 2 significant episodes in which he had significant difficulties with his speech, once yesterday and again today. Patient and his son at bedside reports this started yesterday evening around 7 PM just before sitting down to eat dinner, he reported patient had some palpitations and the Biological alerted them that patient was back into RVR with heart rate of 110 and a few moments later patient developed word finding difficulties accompanied by mild slurred speech. Minor episodes continue with 2 major episodes reported in which patient had significant slurred speech and word finding difficulties. Patient continues to have noted word finding difficulties and slurring of his speech upon physical examination. He remains in atrial fibrillation with a controlled ventricular rate in the 70s at this time. Patient denies experiencing any other neurological deficits or complaints including headache, lightheadedness, dizziness, chest pain, palpitations, shortness of breath, or experiencing any focal numbness/weakness/tingling in his extremities. In the emergency department, patient underwent full evaluation. A CT brain was completed revealing a new area of low attenuation in the left parietal lobe correlating for acute ischemia with no evidence of acute hemorrhage. CBC, BMP, and coags unremarkable. Patient was admitted under our services with consultation to neurology, cardiology, and vascular surgery. MRI completed revealing redemonstration of multiple left cerebral infarcts with a distribution suggestive of embolic phenomenon, may be minimally progressed from prior examination on 07/14/21 with the largest lesion on today's examination in the left posterior frontal wright radiata and is minimumly larger. Repeat carotid Dopplers revealing bilateral heterogeneous plaque with occlusion of left ICA, cardiac dysrhythmia and 50-69% stenosis of the right ICA. Patient was seen and evaluated by vascular surgery, neurology, and cardiology. Patient to continue with anticoagulation with Eliquis, dose was increased to 5 mg twice daily from previous 2.5 twice daily and neurology recommending to discontinue aspirin and started patient on Plavix instead. Cardiology evaluated, stated [facility] will not international exchange coordinator of care and recommending no further interventions at this time. Vascular surgery consulted, recommended no surgical interventions at this time. Patient has been accepted for transfer to [facility] by Dr. Talon Gupta. Covid testing completed and negative. Patient stable for transfer at this time denying any headache, lightheadedness, dizziness, chest pain, palpitations, shortness of breath, or experiencing any numbness/tingling/weakness in his extremities. Physical exam: Vital signs reviewed and stable. General: Nontoxic, no distress and appears stated age. Derm: Skin warm and dry, normal coloration for ethnicity. Head: Atraumatic, normocephalic and symmetric. Eyes: EOMs intact, no lid lag, and anicteric sclera Mouth: no lip lesions, mucus membranes moist Cardiovascular: Irregularly irregular with normal S1S2, systolic murmur, positive posterior tibial pulses bilaterally, and cap refill < 2 seconds. Lungs: Respirations even, regular, and unlabored on room air. Lungs CTA bilaterally, no rhonchi, no rales, no wheezing, and no accessory muscle usage. Abdominal: soft, nontender to palpation, no guarding, no appreciable organomegaly Ext: ROM intact. No gross muscle atrophy, no edema, no contractures Neuro: Mild dysarthria, face symmetrical and CN II-XII grossly intact with no noted focal neuro deficits. GCS 15. Psych: Alert and oriented to person, place, time, and situation. Appropriate and pleasant affect Patient Condition at Discharge: Stable Plan - Discharge Summary Discharge Rx Participant: No New Discharge Prescriptions: New Docusate [Colace] 100 mg PO BID cap Psyllium Husk 100% [Metamucil Packet] 6 gm PO BID packet Clopidogrel [Plavix] 75 mg PO DAILY tab Continue Lisinopril-Hctz 10-12.5 mg [Zestoretic 10-12.5] 1 tab PO DAILY Atorvastatin [Lipitor] 80 mg PO HS 30 Days #30 tab Metoprolol Tartrate [Lopressor] 50 mg PO BID 30 Days #60 tab Apixaban [Eliquis] 5 mg PO BID #60 tab Nitroglycerin Sl Tabs [Nitrostat] 0.4 mg SUBLINGUAL Q5M PRN PRN Reason: Chest Pain Discontinued Aspirin [Adult Low Dose Aspirin EC] 81 mg PO DAILY Discharge Medication List Lisinopril-Hctz 10-12.5 mg [Zestoretic 10-12.5] 1 tab PO DAILY 10/14/18 [History] Apixaban [Eliquis] 5 mg PO BID #60 tab 07/15/21 [Rx] Atorvastatin [Lipitor] 80 mg PO HS 30 Days #30 tab 07/17/21 [Rx] Metoprolol Tartrate [Lopressor] 50 mg PO BID 30 Days #60 tab 07/17/21 [Rx] Nitroglycerin Sl Tabs [Nitrostat] 0.4 mg SUBLINGUAL Q5M PRN 07/31/21 [History] Clopidogrel [Plavix] 75 mg PO DAILY tab 08/06/21 [Rx] Docusate [Colace] 100 mg PO BID cap 08/06/21 [Rx] Psyllium Husk 100% [Metamucil Packet] 6 gm PO BID packet 08/06/21 [Rx] Follow up Appointment(s)/Referral(s): Esteban Chairez DO [Doctor of Osteopathic Medicine] - As Needed Clifton Veronica DO [Primary Care Provider] - 1-2 days Activity/Diet/Wound Care/Special Instructions: Patient has been a bed assignment at [facility]. Patient being transferred to [facility] at this time. Discharge Disposition: OTHER INSTITUTION NOT DEFINED
[2021-08-06] MEDS: ATORVASTATIN 80 MG TAB PO SCH (20:19)
[2021-08-06 20:25] VITALS: BP 119/67; RESP 18; TEMP 97.6
[2021-08-06 21:24] VITALS: PULSE 85
--- NOTE | 2021-08-07 11:05 | P.PN ---
Subjective Progress Note Date: 08/06/21 08/06/2021: Patient denies any changes in his condition. Speech no change as compared to yesterday. 08/05/2021: Patient was seen for a follow-up. Patient's son was also present. Per patient and patient's son report, his speech is improved. Speech therapy also notices that the speech has improved. No new focal symptoms. Telemetry monitoring showing atrial fibrillation, and the heart rate between 48- 60. Some PVCs. 08/04/2021: Patient is an 86-year-old right-handed male presented with recurrent stroke over left MCA territory. Patient came with his first stroke on 07/13/2021 and was diagnosed with left ICA occlusion and new onset atrial fibrillation. Patient was taking aspirin previously but had stopped taking aspirin for a few weeks prior to this stroke. Patient was discharged on Eliquis and aspirin 81 mg daily. Patient was doing better after discharge getting speech therapy. However on one day, the speech got worse and he was readmitted to the hospital. With worsening of symptoms, the aspirin has been discontinued and started on Plavix by Dr. Jimenez Veronica. Family wishes patient to be transferred to [facility]. Patient had no other focal symptoms besides slurred speech. No numbness tingling or focal weakness. 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 Patient is nondiabetic, never smoker. He does have hypertension for 20-30 years. Repeat MRI of the brain on my review revealed worsening of the left sided hem ispheric ischemic infarcts, particularly the left frontal region. There are small tiny areas of acute ischemia involving the left temporal region, not seen in the previous MRI. Patient's blood pressure tends to decrease and he lays down. Objective - Vital Signs Vital signs: Vital Signs Temp 97.9 F 08/06/21 11:58 Pulse 67 08/06/21 14:00 Resp 17 08/06/21 14:00 BP 102/71 08/06/21 11:58 Pulse Ox 97 08/06/21 11:58 Intake & Output 08/05/21 08/06/21 08/06/21 18:59 06:59 18:59 Intake Total 240 118 Output Total 450 Balance -210 118 Weight 79.379 kg Intake: Oral 240 118 Output: Urine 450 Other: Voiding Method Toilet Toilet Toilet Diaper Diaper Diaper # Voids 2 # Bowel Movements 0 - Exam Patient is an elderly male, in no acute distress. Patient is alert awake oriented to time place and person. Speech is mild to moderately dysarthric and language functions are normal. Patient can name and repeat very well. Attention, concentration and fund of knowledge is adequate. Patient is more fluent. On cranial examination, pupils are round and reacting to light, visual main are full on confrontation, with no neglect. His extraocular muscles are intact with no nystagmus. Face is symmetric, tongue protrudes to the midline. Palatal elevation and sensation normal, hearing and shoulder shrug normal, facial sensation normal. Shoulder shrug normal. On muscle strength testing, there is right sided pronation, no drift. His strength is normal in arms and legs distally and proximally. Patient has a chronic right foot drop and uses an AFO. Sensory to touch is equal with no neglect on double simultaneous stimulation. Cerebellar function showed no ataxia for [id number] testing. Tone and bulk of muscles normal. Gait patient walked from bathroom to his bed and appears to have steppage gait on the right because of chronic foot drop. On general examination, S1-S2 audible. Abdomen is soft nontender. Bowel sounds present, no organomegaly. Chest is clear to auscultation. Peripheral pulses are present. No edema. - Labs CBC & Chem 7: 08/05/21 05:57 08/05/21 05:57 Assessment and Plan Assessment: Acute ischemic stroke over the left hemisphere seems embolic. Suspect artery to artery embolism. 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 Patient also has atrial fibrillation, currently on Eliquis. Patient has presented with word finding difficulty (expressive aphasia) and stated had worsening of dyarthria. Recent stroke with multi-infarct on left hemispheric 07/13/2021. Dysarthria due to above Atrial fibrillation Left ICA occlusion Right ICA stenosis Hypertension History of lumbar puncture over the L4-L5 with right foot drop in 1974 status post resection Plan: 1. 2-D echo revealed left ventricular ejection fraction is estimated at 55-60%. Negative agitated saline bubble study for [id number] shunt. 2. Bed available at [facility]. Possible transfer to [facility] this evening. 3. Continue to monitor neurologic status 4. CTA of head and neck from 07/13/2021 reported as occlusion of left ICA at its origin. There is filling of the left SERGEY and MCA from anterior communicating artery. 40% stenosis of the origin of right ICA. I personally reviewed CTA of head and neck as well as discussed with Dr. Eisenberg, who agreed that these complete occlusion of the left ICA in the neck all the way to [place]. No significant stenosis of the right ICA or major vessels in the [place]. 5. Agree with continuing Eliquis 5 mg twice a day and Plavix 75 mg daily. 6. MRI of the brain revealed redemonstration of multiple left cerebral infarcts with a distribution suggestive of embolic phenomenon. This may be minimally progressed from the prior examination 07/14/2021 with the largest lesion on current examination in the left posterior frontal wright radiata and is minima lly larger. I reviewed MRI and agree with the findings. There is an increase in the size of the stroke in the left hemispheric region particularly the left frontal ischemic lesion in the centrum semiovale appears larger as compared to the previous MRI. Also there are a couple tiny areas of ischemia in the left temporal region, not seen in the previous MRI. 7. Lipid panel with cholesterol 94, LDL 36, HDL 36 and triglycerides 99. Continue high-dose statins Lipitor 80 mg. 8. Hemoglobin A1c 6.0 9. Blood sugar pressure is well controlled.
== END 2021-08-06 22:38 | disposition short-term general hospital (02) | DRG 65 ==
LOC: SUPCPDRO 13:22 → EC 13:22 → 3SCARD 16:12
PROVIDERS: ADMIT Internal Medicine; ATTEND Internal Medicine
DX: I63.432 Cerebral infarction due to embolism of left posterior cerebral artery (principal); I48.19 Other persistent atrial fibrillation; R47.01 Aphasia; I11.9 Hypertensive heart disease without heart failure; I08.8 Other rheumatic multiple valve diseases; E78.5 Hyperlipidemia, unspecified; H91.90 Unspecified hearing loss, unspecified ear; R47.1 Dysarthria and anarthria; I65.23 Occlusion and stenosis of bilateral carotid arteries; Z20.822 Contact with and (suspected) exposure to COVID-19; K21.9 Gastro-esophageal reflux disease without esophagitis; M19.90 Unspecified osteoarthritis, unspecified site; I49.3 Ventricular premature depolarization; K59.00 Constipation, unspecified; M21.371 Foot drop, right foot; N40.1 Benign prostatic hyperplasia with lower urinary tract symptoms; N32.81 Overactive bladder; R35.0 Frequency of micturition; Z79.82 Long term (current) use of aspirin; Z79.01 Long term (current) use of anticoagulants; Z79.899 Other long term (current) drug therapy; Z87.19 Personal history of other diseases of the digestive system; Z90.89 Acquired absence of other organs; Z96.653 Presence of artificial knee joint, bilateral; Z98.42 Cataract extraction status, left eye; Z98.41 Cataract extraction status, right eye; Z90.79 Acquired absence of other genital organ(s); Z87.39 Personal history of other diseases of the musculoskeletal system and connective tissue; Z87.891 Personal history of nicotine dependence; Z86.73 Personal history of transient ischemic attack (TIA), and cerebral infarction without residual deficits; Z98.890 Other specified postprocedural states; Z88.0 Allergy status to penicillin
CPT/HCPCS: 36415; 70450; 70551; 80048; 80053; 80061; 83036; 83735; 85025; 85027; 85610; 85730; 87635; 93005; 93308; 93880; 99285

== ENCOUNTER → 2021-09-19 | Outpatient (CLI) | payer MEDICARE, OTHER ==
[2021-09-19 19:20] LABS: Basophils # (A) 0.09 X 10*3/uL (0.00-0.10); Basophils % (A) 1.1 %; Eosinophils # (A) 0.38 X 10*3/uL (0.04-0.35); Eosinophils % (A) 4.7 %; HCT 42.4 % (39.6-50.0); HGB 13.1 g/dL (13.0-17.0); Immature Grans, Automated 0.4 %; Lymphocytes # (A) 1.29 X 10*3/uL (0.90-5.00); Lymphocytes % (A) 16.1 %; MCH 29.7 pg (27.0-32.0); MCHC 30.9 g/dL (32.0-37.0); MCV 96.1 fL (80.0-97.0); Mean Platelet Volume 10.7 fL (9.5-12.2); Monocytes % (A) 7.5 %; NRBC Per 100 WBC 0 /100 WBCS (0.0-0.0); Neutrophils # (A) 5.64 X 10*3/uL (1.80-7.70); Neutrophils % (A) 70.2 %; Platelet Count 239 X 10*3/uL (140-440); RBC 4.41 X 10*6/uL (4.40-5.60); RDW 13.2 % (11.5-14.5); WBC 8.03 X 10*3/uL (4.50-10.00)
[2021-09-19 19:53] LABS: INR 1.05 (0.90-1.11); Prothrombin Time 11.5 sec (9.9-11.9)
[2021-09-19 23:36] LABS: ALT 63 U/L (10-49); AST 42 U/L (14-35); African American GFR (CKD) 89.6 (60.0-200.0); Albumin 3.9 g/dL (3.8-4.9); Albumin/Globulin Ratio 1.68 (1.60-3.17); Alkaline Phosphatase 149 U/L (41-126); BUN/Creat Ratio 14.35 Ratio (12.00-20.00); Bilirubin, Conjugated <0.20 mg/dL (0.20-0.40); Blood Urea Nitrogen 12.6 mg/dL (9.0-27.0); Calcium 9.4 mg/dL (8.7-10.3); Carbon Dioxide 24.9 mmol/L (20.0-27.5); Chloride 104 mmol/L (96-109); Globulin 2.3 g/dL (1.6-3.3); Glucose 95 mg/dL (70-110); Non-African American GFR(CKD) 77.3 (60.0-200.0); Potassium 3.6 mmol/L (3.5-5.5); Sodium 142 mmol/L (135-145); Total Protein 6.3 g/dL (6.2-8.2)
== END | disposition home or self-care (01) ==
LOC: LABWHC1 10:45
PROVIDERS: ATTEND Specialist
DX: I10 Essential (primary) hypertension (principal); I48.19 Other persistent atrial fibrillation; Z79.899 Other long term (current) drug therapy
CPT/HCPCS: 36415; 80048; 80076; 84443; 84481; 85025; 85610

== ENCOUNTER → 2021-10-28 | Outpatient (CLI) | payer MEDICARE, OTHER ==
[2021-10-28 14:47] LABS: African American GFR (CKD) 79.8 (60.0-200.0); BUN/Creat Ratio 19.04 Ratio (12.00-20.00); Blood Urea Nitrogen 18.7 mg/dL (9.0-27.0); Calcium 9.3 mg/dL (8.7-10.3); Carbon Dioxide 27.2 mmol/L (20.0-27.5); Non-African American GFR(CKD) 68.9 (60.0-200.0)
== END | disposition home or self-care (01) ==
LOC: LABWHC1 08:36
PROVIDERS: ATTEND Specialist
DX: I10 Essential (primary) hypertension (principal); E87.6 Hypokalemia
CPT/HCPCS: 36415; 80048

== ENCOUNTER → 2021-11-05 | Outpatient (CLI) | payer MEDICARE, OTHER ==
--- NOTE | 2021-11-05 11:25 | FL ---
INDICATION: Patient age:Male; 86 years old; Reason for study: R13.10 Dysphagia; [facility]. COMPARISON: None TECHNIQUE: Utilizing real-time video recording fluoroscopy, multiple images were obtained after admin istration of various consistencies of barium contrast. A speech pathologist was present throughout the exam. Fluoroscopic time: 1 minute 3 seconds FINDINGS: Consistencies administered: Pudding, thin, and cracker barium. During the oral phase there is normal formation of food bolus with normal initiation of swallow with all consistencies. Premature spill: All consistencies. Laryngeal penetration: Transient laryngeal penetration with thin. Piriform Retention:None identified Vallecular retention: None identified. Nasopharyngeal reflux: None identified. Tracheal aspiration: None identified. Prominent anterior osteophyte at C3-C4. IMPRESSION: 1. No evidence of tracheal aspiration. 2. Premature spill with all consistencies. Transient laryngeal penetration with thin. 3. Prominent anterior osteophyte at C3-C4. Please see dedicated speech pathology report for additional information.
== END | disposition home or self-care (01) ==
LOC: RADFLMAIN 10:33
PROVIDERS: ATTEND Otolaryngology
DX: R13.10 Dysphagia, unspecified (principal)
CPT/HCPCS: 74230

== ENCOUNTER 2022-03-18 09:38 | Emergency (ER) | payer MEDICARE, OTHER ==
--- NOTE | 2022-03-18 10:30 | XR ---
EXAMINATION TYPE: XR chest 2V DATE OF EXAM: 03/18/2022 COMPARISON: 07/12/2021 INDICATION: Cough congestion productive cough TECHNIQUE: Frontal and lateral views of the chest are obtained. FINDINGS: The heart size is normal. The pulmonary vasculature is normal. There may be some subtle right lower lobe infiltrate. Correlate for pneumonia. Atelectasis could be c onsidered. Follow-up can be performed as clinically indicated. IMPRESSION: 1. Subtle right lower lobe infiltrate likely present. Correlate for pneumonia.
--- NOTE | 2022-03-18 13:48 | ED ---
URI HPI - General Chief Complaint: Upper Respiratory Infection Stated Complaint: weakness, cough Time Seen by Provider: 03/18/22 12:43 Source: patient, family, RN notes reviewed Mode of arrival: wheelchair Limitations: no limitations - History of Present Illness Initial Comments: This is an 87-year-old male who presents to the emergency department for co ughing and body aches. Also reports an associated fever and sore throat. States that the symptoms started 2 days ago. His cough is very productive and he describes the mucus as green. Denies any difficulty breathing or chest pain. He has no history of COPD or asthma. Denies any sick contacts. Denies any dyspnea, chest pain, palpitations, abdominal pain, nausea, vomiting, diarrhea, and back pain. MD Complaint: cough, sore throat Onset/Timin -: days(s) - Related Data Home Medications Medication Instructions Recorded Confirmed Lisinopril-Hctz 10-12.5 mg 1 tab PO DAILY 10/14/18 07/31/21 [Zestoretic 10-12.5] Nitroglycerin Sl Tabs [Nitrostat] 0.4 mg SUBLINGUAL Q5M PRN 07/31/21 07/31/21 Previous Rx's Medication Instructions Recorded Apixaban [Eliquis] 5 mg PO BID #60 tab 07/15/21 Atorvastatin [Lipitor] 80 mg PO HS 30 Days #30 tab 07/17/21 Metoprolol Tartrate [Lopressor] 50 mg PO BID 30 Days #60 tab 07/17/21 Clopidogrel [Plavix] 75 mg PO DAILY tab 08/06/21 Docusate [Colace] 100 mg PO BID cap 08/06/21 Psyllium Husk 100% [Metamucil 6 gm PO BID packet 08/06/21 Packet] Albuterol Sulfate [Albuterol 1 puff PO Q4-6H PRN #8.5 gm 03/18/22 Sulfate Hfa] Azithromycin [Zithromax] 250 mg PO DIRECTED 5 Days #6 tab 03/18/22 Promethazine/Dextromethorphan 5 ml PO Q4-6H PRN #473 ml 03/18/22 [Promethazine-Dm Syrup] predniSONE 50 mg PO DAILY 5 Days #5 tab 03/18/22 Allergies Allergy/AdvReac Type Severity Reaction Status Date / Time Penicillins Allergy Intermediate Rash/Hives, Verified 07/31/21 14:49 Joint swelling penicillin G Allergy Rash/Hives, Verified 07/31/21 16:15 [From Bicillin L-A] swelling of joints Review of Systems ROS Statement: Those systems with pertinent positive or pertinent negative responses have been documented in the HPI. ROS Other: All systems not noted in ROS Statement are negative. Past Medical History Past Medical History: GERD/Reflux, GI Bleed, Hypertension, Osteoarthritis (OA), Prostate Disorder Additional Past Medical History / Comment(s): diverticulitis, constipation, overactive bladder, frequent urination, History of Any Multi-Drug Resistant Organisms: None Reported Past Surgical History: Adenoidectomy, Back Surgery, Joint Replacement, Prostate Surgery, Tonsillectomy Additional Past Surgical History / Comment(s): theo knee replacement (rt x 2), TURP, laminectomy to remove a tumor, theo cataracts Past Anesthesia/Blood Transfusion Reactions: Motion Sickness Past Psychological History: No Psychological Hx Reported Smoking Status: Never smoker Past Alcohol Use History: Daily Past Drug Use History: None Reported - Past Family History Mother Family Medical History: No Reported History General Exam Limitations: no limitations General appearance: alert, in no apparent distress Head exam: Present: atraumatic, normocephalic, normal inspection Respiratory exam: Present: normal lung sounds bilaterally. Absent: respiratory distress, wheezes, rales, rhonchi, stridor Cardiovascular Exam: Present: regular rate, normal rhythm, normal heart sounds. Absent: systolic murmur, diastolic murmur, rubs, gallop, clicks Neurological exam: Present: alert, oriented X3, CN II-XII intact Psychiatric exam: Present: normal affect, normal mood Skin exam: Present: warm, dry, intact, normal color. Absent: rash Course Vital Signs 03/18/22 03/18/22 09:46 14:14 Temperature 98 F 98.5 F Pulse Rate 97 84 Respiratory 16 18 Rate Blood Pressure 112/72 110/70 O2 Sat by Pulse 95 99 Oximetry Medical Decision Making - Medical Decision Making This is an 87-year-old male who presents to the emergency department for coughing and body aches. Was pt. sent in by a medical professional or institution? @ -No Did you speak to anyone other than the patient for history? @ -His Did you review nursing and triage notes? @ -Agree, accurate with regards to the patient's symptoms. Were old charts reviewed? @ -No Differential Diagnosis? @ --Influenza, Covid, allergic rhinitis, GERD, pneumonia, bronchitis, COPD, viral pharyngitis, streptococcal pharyngitis, this is not meant to be an all inclulsive list. X-rays interpreted by me (1pt min.)? @ -My interpretation of the chest x-ray identifies a right lower lobe infiltrate. What testing was considered but not performed? (CT, X-rays, U/S, labs)? Why? @ -None What meds were considered but not given? Why? @ -None Did you discuss the management of the patient with other professionals? @ -No Did you reconcile home meds? @ -No Was smoking cessation discussed for >3mins.? @ -No Was critical care preformed (if so, how long)? @ -No Were there social determinants of health that impacted care today? How? (Homelessness, low income, unemployed, alcoholism, drug addiction, transportation, low edu. Level, literacy, decrease access to med. care, nursing home, rehab)? @ -No Was there de-escalation of care discussed even if they declined? (Discuss DNR or withdrawal of care, Hospice)? @ -No What co-morbidities impacted this encounter? (DM, HTN, Smoking, COPD, CAD, Cancer, CVA, Hep., AIDS, mental health diagnosis, sleep apnea, morbid obesity)? @ -GERD and hypertension. Was patient admitted / discharged? @ -Discharged. Chest x-ray obtained with my interpretation listed above. He tested negative for Covid, influenza, RSV, and strep throat. Imaging consistent with pneumonia. Prescription for azithromycin, promethazine DM cough syrup, prednisone, and an albuterol inhaler provided with dosing instructions reviewed. Drug Therapy requiring intensive monitoring for toxicity (Heparin, Nitro, Insulin, Cardizem)? @ -None Were any procedures done? @ -None Diagnosis/symptom? @ -Pneumonia Acute, or Chronic, or Acute on Chronic? @ -Acute Uncomplicated (without systemic symptoms) or Complicated (systemic symptoms)? @ -Complicated due to the headaches, cough, sore throat, fevers, and chills. Side effects of treatment? @ -Adverse reaction to the prescribed medications. Exacerbation, Progression, or Severe Exacerbation] @ -Not applicable Poses a threat to life or bodily function? @ -If the pneumonia were to progress, it can eventually become a life threatening issue and his other symptoms may impact his bodily function. Return precautions reviewed in depth, the patient is instructed to return to the emergency department with any new, worsening, or concerning symptoms. Patient verbalized understanding. This case was discussed in detail with the attending ED physician. Presentation, findings, and treatment plan discussed in detail as well. - Lab Data Lab Results 03/18/22 03/18/22 Range/Units 09:57 09:58 Influenza Type A (PCR) Not Detected (Not Detectd) Influenza Type B (PCR) Not Detected (Not Detectd) RSV (PCR) Not Detected (Not Detectd) SARS-CoV-2 (PCR) Not Detected (Not Detectd) Group A Strep (PCR) NOT DETECTED (Not Detectd) - Radiology Data Radiology results: report reviewed, image reviewed Disposition Clinical Impression: Pneumonia Disposition: HOME SELF-CARE Instructions (If sedation given, give patient instructions): Pneumonia (ED) Additional Instructions: Return to the emergency department with any new, worsening, or concerning symptoms. Take the prednisone daily for 5 days. Take the antibiotic as prescribed for 5 days. The albuterol inhaler and cough medication can be used every 4-6 hours as needed. The cough medicine may make you drowsy and you should take it at night until you know how it affects you. Follow up with your primary care provider in 1-2 days. Prescriptions: Albuterol Sulfate [Albuterol Sulfate Hfa] 1 puff PO Q4-6H PRN #8.5 gm PRN Reason: Shortness Of Breath predniSONE 50 mg PO DAILY 5 Days #5 tab Promethazine/Dextromethorphan [Promethazine-Dm Syrup] 5 ml PO Q4-6H PRN #473 ml PRN Reason: Cough Azithromycin [Zithromax] 250 mg PO DIRECTED 5 Days #6 tab Is patient prescribed a controlled substance at d/c from ED?: No Referrals: Clifton Veronica DO [Primary Care Provider] - 1-2 days
[2022-03-18 14:18] VITALS: BP 110/70; PULSE 84; RESP 18; TEMP 98.5
== END 2022-03-18 14:14 | disposition home or self-care (01) ==
LOC: EC 09:38
DX: J18.9 Pneumonia, unspecified organism (principal); I10 Essential (primary) hypertension; M19.90 Unspecified osteoarthritis, unspecified site; Z79.899 Other long term (current) drug therapy; Z79.1 Long term (current) use of non-steroidal anti-inflammatories (NSAID); Z88.0 Allergy status to penicillin; Z20.822 Contact with and (suspected) exposure to COVID-19
CPT/HCPCS: 71046; 87636; 87651; 99285

== ENCOUNTER → 2023-01-28 | Outpatient (CLI) | payer MEDICARE, OTHER ==
[2023-01-28 11:30] LABS: Basophils # (A) 0.1 k/uL (0-0.2); Basophils % (A) 2 %; Eosinophils # (A) 0.3 k/uL (0-0.7); Eosinophils % (A) 4 %; HCT 47.3 % (39.0-53.0); HGB 13.9 gm/dL (13.0-17.5); Hypochromasia Marked; Lymphocytes % (A) 14 %; MCH 29.3 pg (25.0-35.0); MCHC 29.4 g/dL (31.0-37.0); Macrocytosis Slight; Mean Platelet Volume 8.7; Monocytes # (A) 0.4 k/uL (0-1.0); Monocytes % (A) 6 %; Neutrophils # (A) 5.3 k/uL (1.3-7.7); Neutrophils % (A) 73 %; Platelet Count 168 k/uL (150-450); RBC 4.74 m/uL (4.30-5.90); RDW 15.2 % (11.5-15.5); WBC 7.3 k/uL (3.8-10.6)
[2023-01-28 17:55] LABS: Chol/HDL Ratio 2.32 Ratio; LDL Cholesterol,Calculated 51.3 mg/dL (0.0-131.0); T4, Free (Free Thyroxine) 1.24 ng/dL (0.80-1.80); VLDL Calculation 9.46 mg/dL (5.00-40.00)
[2023-01-28 18:07] LABS: ALT 56 U/L (10-49); AST 54 U/L (14-35); Albumin 4.2 g/dL (3.8-4.9); Albumin/Globulin Ratio 1.68 Ratio (1.60-3.17); Alkaline Phosphatase 199 U/L (41-126); Blood Urea Nitrogen 12.8 mg/dL (9.0-27.0); Calcium 9.9 mg/dL (8.7-10.3); Carbon Dioxide 24.2 mmol/L (21.6-31.8); Chloride 105 mmol/L (96-109); Globulin 2.5 g/dL (1.6-3.3); Glucose 104 mg/dL (70-110); Potassium 4.6 mmol/L (3.5-5.5); Sodium 141 mmol/L (135-145); Total Bilirubin 1.2 mg/dL (0.3-1.2); Total Protein 6.7 g/dL (6.2-8.2)
== END | disposition home or self-care (01) ==
LOC: LABWHC1 08:58
PROVIDERS: ATTEND Internal Medicine Critical Care Medicine
DX: I63.9 Cerebral infarction, unspecified (principal); K57.92 Diverticulitis of intestine, part unspecified, without perforation or abscess without bleeding; N40.1 Benign prostatic hyperplasia with lower urinary tract symptoms; E78.5 Hyperlipidemia, unspecified; R97.20 Elevated prostate specific antigen [PSA]
CPT/HCPCS: 36415; 80053; 80061; 82306; 83036; 84439; 84443; 85025

== ENCOUNTER → 2023-07-29 | Outpatient (CLI) | payer MEDICARE, OTHER ==
--- NOTE | 2023-08-02 12:59 | NM ---
EXAMINATION TYPE: NM WBC limited DATE OF EXAM: 08/02/2023 COMPARISON: NONE CLINICAL INDICATION: Male, 88 years old with history of M01.X61 DIRECT INFECT OF R KNEE IN INFEC/PARA STC DI; TECHNIQUE: Following administration of 21.2 mCi Tc99m Ceretec. Images obtained 4 hours post injecti on. FINDINGS: Increased radiotracer uptake is seen within the medial knee on the right and more diffuse s ubtly uptake around the joint on the right. IMPRESSION: Abnormal uptake along the medial knee on the right correlate for infection. Correlate with plain film and/or MRI.
== END | disposition home or self-care (01) ==
LOC: RADNMMAIN 07:04
PROVIDERS: ATTEND Internal Medicine Critical Care Medicine
DX: M25.561 Pain in right knee (principal); M01.X61 Direct infection of right knee in infectious and parasitic diseases classified elsewhere
CPT/HCPCS: 78300; A9569

== ENCOUNTER → 2023-08-09 | Outpatient (CLI) | payer MEDICARE, OTHER | END | disposition home or self-care (01) | LOC: RADMRIMAIN 10:11 | PROVIDERS: ATTEND Internal Medicine Critical Care Medicine | DX: M25.561 Pain in right knee (principal); M01.X61 Direct infection of right knee in infectious and parasitic diseases classified elsewhere ==